=== PATIENT | female | born 1950 | race Caucasian/White ===

== ENCOUNTER 2020-06-09 06:35 | Inpatient (IN) ==
[2020-06-09] MEDS ORDERED: 0.9 % SODIUM CHLORIDE 1,000 ML IV ONE ×2 (06:48→08:14)
[2020-06-09] MEDS ORDERED: LORazepam 2 MG/ML VIAL IV ONE ×3 (07:06→08:08)
[2020-06-09 07:56] LABS: Basophils # (Auto) 0.01 K/mcL (0.00-0.20); Basophils % (Auto) 0.1 % (0.0-2.0); Eosinophils # (Auto) 0 K/mcL (0.00-0.70); Eosinophils % (Auto) 0 % (0.0-7.0); Hematocrit 38.5 % (36.0-48.0); Hemoglobin 12.9 g/dL (12.0-15.0); Lymphocytes # (Auto) 1.47 K/mcL (1.50-4.80); Lymphocytes % (Auto) 13.1 % (15.0-49.0); Mean Cell Volume 87.7 fL (80.0-100.0); Mean Corpuscular HGB Conc 33.5 g/dL (31.0-36.0); Mean Platelet Volume 10.3 fL (7.4-10.4); Monocytes # (Auto) 0.58 K/mcL (0.10-0.90); Monocytes % (Auto) 5.2 % (1.0-12.0); Neutrophils % (Auto) 81.6 % (38.0-78.0); Platelet Count 287 K/mcL (140-440); RBC 4.39 M/mcL (4.00-5.20); Red Cell Distribution Width 14.5 % (11.5-14.5); WBC 11.2 K/mcL (4.5-11.0)
[2020-06-09] MEDS ORDERED: cefTRIAXone 1 GM VIAL IV ONE ×2 (08:14→12:45)
--- NOTE | 2020-06-09 08:23 | Emergency Department Note ---
HPI General Chief complaint: Weakness Stated complaint: weakness Time Seen by Provider: 06/09/20 08:14 Source: EMS Mode of arrival: EMS Limitations: no limitations History of Present Illness HPI Narrative: Narrative: 69-year-old patient presenting to the emergency department chief complaint of altered mentation. Historical clues assessed for include recent febrile illness, history of organ failure, medication list evaluation, alcohol drug abuse, recent depression. Patient is confused at time of evaluation and history is limited. There are no exacerbating or ameliorating factors identified at this time. Time course is acute, patient noted to have fallen out of bed this morning is on Plavix. Initially on presentation patient was not responsive however during interventions and working on her without significant medications or fluids patient became verbal and made purposeful movements moving all extremities during these encounters. Related Data Home Medications Medication Instructions Recorded Confirmed topiramate 100 mg tablet 100 mg PO BID 06/01/19 02/07/20 budesonide-formoterol HFA 80 2 puff INHALATION BID PRN 06/03/19 02/07/20 mcg-4.5 mcg/actuation aerosol inhaler ipratropium 20 mcg-albuterol 100 1 puff INHALATION QID PRN g 06/03/19 02/07/20 mcg/actuation mist for inhalation metformin 1,000 mg PO BID 01/22/20 02/07/20 Previous Rx's Medication Instructions Recorded blood sugar diagnostic #100 each 11/04/19 blood-glucose meter #1 each 11/04/19 lancets #102 each 11/04/19 clopidogrel 75 mg tablet 75 mg PO QDAY #90 tab 12/27/19 fenofibrate 160 mg tablet 160 mg PO DAILY #90 tab 12/27/19 semaglutide 0.5 mg SUB-Q QWEEK #1.5 ml 02/07/20 trazodone 150 mg tablet See Rx Instructions .ROUTE 04/17/20 .COMPLEX #60 tab clonazepam 0.5 mg tablet 0.5 mg PO BID #60 tab 06/05/20 duloxetine 20 mg capsule,delayed 40 mg PO QDAY #180 cap 06/05/20 release nortriptyline 25 mg capsule 25 mg PO QHS #90 cap 06/05/20 rosuvastatin 20 mg tablet 10 mg PO QHS #90 tab 06/05/20 Allergies Allergy/AdvReac Type Severity Reaction Status Date / Time Sulfa (Sulfonamide Allergy Intermediate Hives Verified 02/07/20 07:56 Antibiotics) citalopram AdvReac Mild Nausea and Verified 02/07/20 07:56 Vomiting codeine AdvReac Mild Nausea and Verified 02/07/20 07:56 Vomiting hydrocodone AdvReac Mild Nausea and Verified 02/07/20 07:56 vomiting sertraline [From Zoloft] AdvReac Mild Nausea and Verified 02/07/20 07:56 Vomiting Review of Systems ROS ROS Narrative: Narrative: Limitations: ROS unobtainable due to patients medical condition [facility] Narrative Patient History Narrative: Narrative: Medical/Surgical/Family History All Active Problems (Updated 06/09/20 @ 08:23 by Jaime Zelaya MD) Dehydration (Acute) Acute alteration in mental status (Acute) Herpes zoster without complication (Chronic) Chronic left shoulder pain (Chronic) Arthrofibrosis of total knee arthroplasty (Chronic) Foot infection (Chronic) Depression (Chronic) Arthritis (Chronic) Anesthesia complication (Chronic) Spondylosis of lumbar region without myelopathy or radiculopathy (Chronic) Hyperlipidemia with target LDL less than 70 (Chronic) COPD (chronic obstructive pulmonary disease) (Chronic) Chronic low back pain (Chronic) Bilateral hearing loss (Chronic) Type 2 diabetes mellitus without complication, without long-term current use of insulin (Chronic) Non-rheumatic mitral regurgitation (Chronic) Abnormal chest CT (Chronic) Dermatitis of external ear (Chronic) Hyperglycemia (Chronic) Obstructive sleep apnea (Chronic) Essential hypertension (Chronic) ZACARIAS (dyspnea on exertion) (Chronic) Osteoarthritis of right knee (Chronic) ALMA (generalized anxiety disorder) (Chronic) Benzodiazepine dependence (Chronic) Eczema (Acute) Contracture, right knee (Chronic) Stroke (Chronic ~2003) Joint pain (Chronic ~2016) Insomnia (Chronic ~2009) High cholesterol (Chronic ~2007) Daytime sleepiness (Chronic ~2016) Bleeding disorder (Chronic ~2007) Anxiety (Chronic ~2003) Medical History (Updated 06/09/20 @ 08:23 by Jaime Zelaya MD) Abnormal chest CT (Chronic) Anesthesia complication (Chronic) "stopped breathing" Anxiety (Chronic ~2003) Arthritis (Chronic) Arthrofibrosis of total knee arthroplasty (Chronic) Benzodiazepine dependence (Chronic) Bilateral hearing loss (Chronic) due to measles Bleeding disorder (Chronic ~2007) Chronic left shoulder pain (Chronic) Chronic low back pain (Chronic) COPD (chronic obstructive pulmonary disease) (Chronic) Daytime sleepiness (Chronic ~2017) Depression (Chronic) Dermatitis of external ear (Chronic) ZACARIAS (dyspnea on exertion) (Chronic) Essential hypertension (Chronic) Foot infection (Chronic) ALMA (generalized anxiety disorder) (Chronic) Herpes zoster without complication (Chronic) High cholesterol (Chronic ~2007) Hyperglycemia (Chronic) Hyperlipidemia with target LDL less than 70 (Chronic) Insomnia (Chronic ~2009) Joint pain (Chronic ~2016) Non-rheumatic mitral regurgitation (Chronic) Obstructive sleep apnea (Chronic) Osteoarthritis of right knee (Chronic) Spondylosis of lumbar region without myelopathy or radiculopathy (Chronic) Stroke (Chronic ~2003) Type 2 diabetes mellitus without complication, without long-term current use of insulin (Chronic) Surgical History History of arthroscopy of knee (Chronic) History of knee replacement (Chronic ~2016) Right History of left shoulder replacement (Chronic ~2011) History of surgery on arm (Chronic) Left arm fracture Family History Father Cancer Heart attack Coronary artery disease Diabetes Mother Heart attack Cancer Diabetes Coronary artery disease Unknown No problems noted. Other COPD (chronic obstructive pulmonary disease) Heart disease Social History Smoking Status: Former smoker Alcohol Intake Frequency: does not drink Substance Use: does not use Exam Narrative Narrative: General: Reduced interaction, arousable, responsive to verbal stimuli as well as pain, moving all extremities Head: Atraumatic, normocephalic Eyes: Extraocular movements intact, sclera anicteric, no conjunctival injection Ears: Pinnae normal, no discharge Mouth: Oral mucosa moist, no acute swelling or evidence of infection Nares: No nasal discharge, patent bilaterally Neck: Trachea midline, full range of motion Chest: Symmetrical chest wall rise, breathing normally; nonlabored respirations Cardiovascular: Patient with excellent perfusion to the extremities; without tachycardia/bradycardia Skin: Patient without area of erythema, patient is without rash, no ascending lymphangitis or lymphadenopathy Extremities: Full range of motion joints, no obvious deformities Neuro: Arousable confused appearing, cranial nerves II through XII grossly intact, patient without lateralizing findings such as weakness, or abnormal reflexes Psychiatric: Patient with altered mentation, decreased interaction General Limitations: no limitations Course Vital Signs Vital signs: Vital Signs Temperature 97.0 F 06/09/20 06:36 Pulse Rate 119 H 06/09/20 06:36 Respiratory Rate 18 06/09/20 06:36 Pulse Oximetry (%) 100 06/09/20 06:36 Temperature 97.0 F 06/09/20 06:36 Pulse Rate 119 H 06/09/20 06:36 Respiratory Rate 18 06/09/20 06:36 Blood Pressure 111/79 06/09/20 07:47 Pulse Oximetry (%) 100 06/09/20 06:36 MDM MDM Narrative Medical decision making narrative: Narrative: 69-year-old patient presenting to the emergency department chief complaint of altered mental status. Patient's recent medical history is evaluated for infectious illnesses, history of organ failure, medication list, drug/alcohol history, and depression patient's mental status made them unable to provide significant clues to current symptoms differential diagnosis included but not limited to stroke, intracranial hemorrhage, electrolyte derangement, DKA/HHS, sepsis, toxicology including alcohol and overdose, status epilepticus. Evaluation the emergency department included multiple laboratories as well as CT scan, chest x-ray, blood cultures, urine culture, urine drug screen, IV fluids 2 L were ordered at time of shift change, Rocephin 1 g IV. At time of shift change patient was still in the work-up process and bDr. Lopez will assume care. Lab Data Result diagrams: 06/09/20 07:01 06/09/20 07:01 Labs: Lab Results 06/09/20 Range/Units 07:01 WBC 11.2 H (4.5-11.0) K/mcL RBC 4.39 (4.00-5.20) M/mcL Hgb 12.9 (12.0-15.0) g/dL Hct 38.5 (36.0-48.0) % MCV 87.7 (80.0-100.0) fL MCH 29.4 (26.0-34.0) pg MCHC 33.5 (31.0-36.0) g/dL RDW 14.5 (11.5-14.5) % Plt Count 287 (140-440) K/mcL MPV 10.3 (7.4-10.4) fL Neut % (Auto) 81.6 H (38.0-78.0) % Lymph % (Auto) 13.1 L (15.0-49.0) % [place] % (Auto) 5.2 (1.0-12.0) % Eos % (Auto) 0 (0.0-7.0) % Baso % (Auto) 0.1 (0.0-2.0) % Lymph # (Auto) 1.47 L (1.50-4.80) K/mcL [place] # (Auto) 0.58 (0.10-0.90) K/mcL Eos # (Auto) 0 (0.00-0.70) K/mcL Baso # (Auto) 0.01 (0.00-0.20) K/mcL Absolute Neutrophils 9.16 H (1.80-8.00) K/mcL Discharge Plan Patient/Caregiver Discharge Instructions Pt seen by [facility]/PA only: No Clinical Impression: Acute alteration in mental status Patient Disposition: Still a Patient Condition: Undetermined Follow up with: Yari Fritz PA-C [Primary Care Provider] - Prescriptions: No Action fenofibrate 160 mg tablet 160 mg tablet 160 mg PO DAILY Qty: 90 RF: 0 clopidogrel 75 mg tablet 75 mg PO QDAY Qty: 90 RF: 0 trazodone 150 mg tablet See Rx Instructions .ROUTE .COMPLEX Qty: 60 RF: 2 rosuvastatin 20 mg tablet 10 mg PO QHS Qty: 90 RF: 0 nortriptyline 25 mg capsule 25 mg PO QHS Qty: 90 RF: 0 duloxetine 20 mg capsule,delayed release(DR/EC) 40 mg PO QDAY Qty: 180 RF: 0 clonazepam 0.5 mg tablet 0.5 mg PO BID Qty: 60 RF: 2 Symbicort 80-4.5 mcg/actuation HFA aerosol inhaler 2 puff INHALATION BID PRN (Reason: Shortness Of Breath) RF: 0 Combivent Respimat 20-100 mcg/actuation mist 1 puff INHALATION QID PRN (Reason: Shortness Of Breath) RF: 0 topiramate 100 mg tablet 100 mg PO BID RF: 0 (DME) blood-glucose meter Misc See Rx Instructions .ROUTE .MEDSUPPLY Qty: 1 RF: 0 (DME) blood sugar diagnostic [Blood Glucose Test] Strip See Rx Instructions .ROUTE .MEDSUPPLY Qty: 100 RF: 3 (DME) lancets [Accu-Chek Softclix Lancets] Misc See Rx Instructions .ROUTE .MEDSUPPLY Qty: 102 RF: 3 Ozempic 0.25 mg or 0.5 mg(2 mg/1.5 mL) pen injector 0.5 mg SUB-Q QWEEK Qty: 1.5 RF: 3 metformin 500 mg tablet 1,000 mg PO BID RF: 0
[2020-06-09 08:26] LABS: ALT/SGPT 16 U/L (<40); AST/SGOT 17 U/L (<32); Albumin 3.5 gm/dL (3.2-5.2); Albumin/Globulin Ratio 1.1 (1.0-2.3); Alkaline Phosphatase 62 U/L (39-117); Bilirubin,Total 1.8 mg/dL (0.1-1.0); Blood Urea Nitrogen 33 mg/dL (8-23); Calcium 8.8 mg/dL (8.6-10.4); Carbon Dioxide 17 mmol/L (22-30); Chloride 88 mmol/L (96-108); Globulin 3.2 gm/dL (2.2-3.7); Glomerular Filtration Rate 50; Glucose 291 mg/dL (70-105)
[2020-06-09] MEDS ORDERED: POTASSIUM CHLORIDE 40 MEQ in DEXTROSE 5% IN WATER 500 ML IV ONE (08:26)
[2020-06-09 08:34] LABS: Alcohol, Blood < 10.0 mg/dL
--- NOTE | 2020-06-09 08:51 | Cat Scan Report ---
History: Fell with decreased mental status, increased weakness TECHNIQUE: The brain was imaged without contrast at 2.5 mm intervals. Radiation exposure was limited using dose reduction technology. FINDINGS: There is a moderate-sized old infarct with encephalomalacia at the right temporoparietal boundary. Measures approximately 2.4 x 3.4 cm. This was present on the prior MRI done on 12/27/09. The encephalomalacia has progressed. No acute infarct is detected and there is no hemorrhage. Patient has large bilateral subpectoral hygromas with CSF attenuation. They surrounding the frontal and parietal and temporal lobes. This measures up to 1.4 cm in width on the right side approximately 8mm in the left. These are new since 12/27/09. Bone windows show no skull fracture. 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
--- NOTE | 2020-06-09 08:53 | XRay Report ---
HISTORY: Chest pain, dyspnea and combativeness FINDINGS: The lungs are clear normally expanded. The heart size, pulmonary vasculature, mediastinum, vinny and pleura are normal. There is a left shoulder prosthesis. 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 Comparison with the prior exam from 01/22/20 shows no significant change. Old healed fractures are present posterolaterally in the left sixth seventh and eighth ribs. IMPRESSION: No acute abnormality Interpreted and Authenticated by: Abdirashid Sanchez 06/09/20
[2020-06-09 08:55] LABS: Amphetamine Screen,Urine None detected; Barbiturate Screen,Urine None detected; Benzodiazepines Screen,Urine None detected; Cannabinoid Screen,Urine None detected; Cocaine Screen,Urine None detected; Opiate Screen,Urine None detected; Oxycodone, Urine Screen None detected; Phencyclidine Screen,Urine None detected
--- NOTE | 2020-06-09 09:21 | Emergency Department Note ---
HPI General Chief complaint: Weakness Stated complaint: weakness Time Seen by Provider: 06/09/20 08:14 Source: EMS Mode of arrival: EMS Limitations: no limitations History of Present Illness HPI Narrative: Narrative: See history and physical dictated by Dr. Zelaya. I am assuming care of patient and the post shift change. CT scan comes back with abnormalities. See below under MDM. Related Data Home Medications Medication Instructions Recorded Confirmed topiramate 100 mg tablet 100 mg PO BID 06/01/19 02/07/20 budesonide-formoterol HFA 80 2 puff INHALATION BID PRN 06/03/19 02/07/20 mcg-4.5 mcg/actuation aerosol inhaler ipratropium 20 mcg-albuterol 100 1 puff INHALATION QID PRN g 06/03/19 02/07/20 mcg/actuation mist for inhalation metformin 1,000 mg PO BID 01/22/20 02/07/20 Previous Rx's Medication Instructions Recorded blood sugar diagnostic #100 each 11/04/19 blood-glucose meter #1 each 11/04/19 lancets #102 each 11/04/19 clopidogrel 75 mg tablet 75 mg PO QDAY #90 tab 12/27/19 fenofibrate 160 mg tablet 160 mg PO DAILY #90 tab 12/27/19 semaglutide 0.5 mg SUB-Q QWEEK #1.5 ml 02/07/20 trazodone 150 mg tablet See Rx Instructions .ROUTE 04/17/20 .COMPLEX #60 tab clonazepam 0.5 mg tablet 0.5 mg PO BID #60 tab 06/05/20 duloxetine 20 mg capsule,delayed 40 mg PO QDAY #180 cap 06/05/20 release nortriptyline 25 mg capsule 25 mg PO QHS #90 cap 06/05/20 rosuvastatin 20 mg tablet 10 mg PO QHS #90 tab 06/05/20 Allergies Allergy/AdvReac Type Severity Reaction Status Date / Time Sulfa (Sulfonamide Allergy Intermediate Hives Verified 02/07/20 07:56 Antibiotics) citalopram AdvReac Mild Nausea and Verified 02/07/20 07:56 Vomiting codeine AdvReac Mild Nausea and Verified 02/07/20 07:56 Vomiting hydrocodone AdvReac Mild Nausea and Verified 02/07/20 07:56 vomiting sertraline [From Zoloft] AdvReac Mild Nausea and Verified 02/07/20 07:56 Vomiting Review of Systems ROS ROS Narrative: Narrative: PFSH Narrative Patient History Narrative: Narrative: Medical/Surgical/Family History All Active Problems (Updated 06/09/20 @ 11:26 by Karthik Lopez DO) Dehydration (Acute) Accidental fall from bed (Acute) Elevated lactic acid level (Acute) Hypokalemia (Acute) Subdural hygroma (Acute) Increased anion gap metabolic acidosis (Acute) Dehydration (Acute) Acute alteration in mental status (Acute) Herpes zoster without complication (Chronic) Chronic left shoulder pain (Chronic) Arthrofibrosis of total knee arthroplasty (Chronic) Foot infection (Chronic) Depression (Chronic) Arthritis (Chronic) Anesthesia complication (Chronic) Spondylosis of lumbar region without myelopathy or radiculopathy (Chronic) Hyperlipidemia with target LDL less than 70 (Chronic) COPD (chronic obstructive pulmonary disease) (Chronic) Chronic low back pain (Chronic) Bilateral hearing loss (Chronic) Type 2 diabetes mellitus without complication, without long-term current use of insulin (Chronic) Non-rheumatic mitral regurgitation (Chronic) Abnormal chest CT (Chronic) Dermatitis of external ear (Chronic) Hyperglycemia (Chronic) Obstructive sleep apnea (Chronic) Essential hypertension (Chronic) ZACARIAS (dyspnea on exertion) (Chronic) Osteoarthritis of right knee (Chronic) ALMA (generalized anxiety disorder) (Chronic) Benzodiazepine dependence (Chronic) Eczema (Acute) Contracture, right knee (Chronic) Stroke (Chronic ~2003) Joint pain (Chronic ~2017) Insomnia (Chronic ~2009) High cholesterol (Chronic ~2007) Daytime sleepiness (Chronic ~2016) Bleeding disorder (Chronic ~2007) Anxiety (Chronic ~2003) Medical History (Updated 06/09/20 @ 11:26 by Karthik Lopez DO) Abnormal chest CT (Chronic) Anesthesia complication (Chronic) "stopped breathing" Anxiety (Chronic ~2003) Arthritis (Chronic) Arthrofibrosis of total knee arthroplasty (Chronic) Benzodiazepine dependence (Chronic) Bilateral hearing loss (Chronic) due to measles Bleeding disorder (Chronic ~2007) Chronic left shoulder pain (Chronic) Chronic low back pain (Chronic) COPD (chronic obstructive pulmonary disease) (Chronic) Daytime sleepiness (Chronic ~2017) Depression (Chronic) Dermatitis of external ear (Chronic) ZACARIAS (dyspnea on exertion) (Chronic) Essential hypertension (Chronic) Foot infection (Chronic) ALMA (generalized anxiety disorder) (Chronic) Herpes zoster without complication (Chronic) High cholesterol (Chronic ~2007) Hyperglycemia (Chronic) Hyperlipidemia with target LDL less than 70 (Chronic) Insomnia (Chronic ~2009) Joint pain (Chronic ~2016) Non-rheumatic mitral regurgitation (Chronic) Obstructive sleep apnea (Chronic) Osteoarthritis of right knee (Chronic) Spondylosis of lumbar region without myelopathy or radiculopathy (Chronic) Stroke (Chronic ~2003) Type 2 diabetes mellitus without complication, without long-term current use of insulin (Chronic) Surgical History (Updated 06/09/20 @ 09:11 by Karthik Lopez DO) History of arthroscopy of knee (Chronic) History of knee replacement (Chronic ~2016) Right History of left shoulder replacement (Chronic ~2011) History of surgery on arm (Chronic) Left arm fracture History of tonsillectomy (Resolved) Family History Diabetes Father Mother Coronary artery disease Father Mother Heart disease Heart attack Father Mother COPD (chronic obstructive pulmonary disease) Cancer Father Mother Social History Smoking Status: Former smoker Alcohol Intake Frequency: does not drink Substance Use: does not use Exam Narrative Narrative: Narrative: Significantly confused, not able to obey commands. Utterances include nonsense and sometimes sentences that are not appropriate for the circumstances. Speaking of something blue or blue closer people and blue. Not sure if she was prompted by a dark blue scrub or a blue pen but does not make sense for the contacts. Nursing reports agitation, confusion, uncooperativeness. Has pulled out IVs x2. Has her third IV wrapped tightly with Coban on the right hand/wrist. 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 Less urgent but does recommend speaking with a neurosurgeon. 10:01 AM - spoke with Dr. Ravi, neurosurgeon, who indicates that the hygrom as are definite there but could be more mainly atrophy of the brain that is moderately severe. A possible shunt or shunts could be considered but that this could be done outpatient and is not an acute need. Currently there is no mass- effect, shift, hemorrhage. 10:04 AM - spoke with patient's , Surjit who indicates no official diagnosis of dementia but 7 to 8 months ago Surjit begin to notice confusion, memory changes, struggling for words, speaking and then stopping and not being able to finish. There were no abnormal behaviors in finding things and wrong places but did need help getting close on. Some of this he thinks is physical but some could be mental as well. She often is more confused later in the day and sharper in the morning. No official diagnosis of dementia. 10:19 AM - nursing staff confirms that her urine was dark, tea colored, cloudy with markedly positive nitrates and leukocyte esterase. Specific gravity is 1.025. Lactic acid was significantly elevated, there is some degree of acidosis with mildly suppressed bicarb at 17 (commonly 18-20) but her anion gap is markedly elevated at 28.0. BUN is 33, creatinine 1.1. This is quite significantly different for her BUN. Chest x-ray was negative. Patient does have a history of being on clonazepam, nortriptyline and trazodone in the past. It is uncertain what her dosing has been of this. Urine drug screen of abuse was negative. Alcohol did however show 0.010. Grandma indicates that she does not have access to any alcohol and does not drink. He admits that he occasionally has beer available but believes that she does not have any access to it. 11:15 AM - I spoke with hospitalist, Dr. Mackey, who is willing to take over this patient and accept for inpatient care to further work-up. I added a s alicylate level, an actual urinalysis, and an order for 2 mg of Haldol due to her significant severe agitation. Lab Data Result diagrams: 06/09/20 07:01 06/09/20 07:01 Labs: Lab Results 06/09/20 06/09/20 06/09/20 Range/Units 07:01 07:01 07:01 WBC 11.2 H (4.5-11.0) K/mcL RBC 4.39 (4.00-5.20) M/mcL Hgb 12.9 (12.0-15.0) g/dL Hct 38.5 (36.0-48.0) % MCV 87.7 (80.0-100.0) fL MCH 29.4 (26.0-34.0) pg MCHC 33.5 (31.0-36.0) g/dL RDW 14.5 (11.5-14.5) % Plt Count 287 (140-440) K/mcL MPV 10.3 (7.4-10.4) fL Neut % (Auto) 81.6 H (38.0-78.0) % Lymph % (Auto) 13.1 L (15.0-49.0) % [place] % (Auto) 5.2 (1.0-12.0) % Eos % (Auto) 0 (0.0-7.0) % Baso % (Auto) 0.1 (0.0-2.0) % Lymph # (Auto) 1.47 L (1.50-4.80) K/mcL [place] # (Auto) 0.58 (0.10-0.90) K/mcL Eos # (Auto) 0 (0.00-0.70) K/mcL Baso # (Auto) 0.01 (0.00-0.20) K/mcL Absolute Neutrophils 9.16 H (1.80-8.00) K/mcL Sodium 133 (133-145) mmol/L Potassium 2.4 L* (3.3-5.1) mmol/L Chloride 88 L (96-108) mmol/L Carbon Dioxide 17 L (22-30) mmol/L Anion Gap 28.0 H (8.0-16.0) BUN 33 H (8-23) mg/dL Creatinine 1.1 (0.6-1.1) mg/dL GFR Calculation 50 Glucose 291 H (70-105) mg/dL Calcium 8.8 (8.6-10.4) mg/dL Total Bilirubin 1.8 H (0.1-1.0) mg/dL AST 17 (<32) U/L ALT 16 (<40) U/L Alkaline Phosphatase 62 (39-117) U/L Troponin T (<0.03) ng/mL Total Protein 6.7 (5.9-8.4) gm/dL Albumin 3.5 (3.2-5.2) gm/dL Globulin 3.2 (2.2-3.7) gm/dL Albumin/Globulin Ratio 1.1 (1.0-2.3) Urine Opiates Screen Ur Oxycodone Screen Urine Methadone Screen Ur Barbiturates Screen Ur Phencyclidine Scrn Ur Amphetamines Screen U Benzodiazepines Scrn Urine Cocaine Screen U Marijuana (THC) Screen Ethyl Alcohol 0.010 H (<0.010) gm/dL 06/09/20 06/09/20 Range/Units 07:01 08:00 WBC (4.5-11.0) K/mcL RBC (4.00-5.20) M/mcL Hgb (12.0-15.0) g/dL Hct (36.0-48.0) % MCV (80.0-100.0) fL MCH (26.0-34.0) pg MCHC (31.0-36.0) g/dL RDW (11.5-14.5) % Plt Count (140-440) K/mcL MPV (7.4-10.4) fL Neut % (Auto) (38.0-78.0) % Lymph % (Auto) (15.0-49.0) % [place] % (Auto) (1.0-12.0) % Eos % (Auto) (0.0-7.0) % Baso % (Auto) (0.0-2.0) % Lymph # (Auto) (1.50-4.80) K/mcL [place] # (Auto) (0.10-0.90) K/mcL Eos # (Auto) (0.00-0.70) K/mcL Baso # (Auto) (0.00-0.20) K/mcL Absolute Neutrophils (1.80-8.00) K/mcL Sodium (133-145) mmol/L Potassium (3.3-5.1) mmol/L Chloride (96-108) mmol/L Carbon Dioxide (22-30) mmol/L Anion Gap (8.0-16.0) BUN (8-23) mg/dL Creatinine (0.6-1.1) mg/dL GFR Calculation Glucose (70-105) mg/dL Calcium (8.6-10.4) mg/dL Total Bilirubin (0.1-1.0) mg/dL AST (<32) U/L ALT (<40) U/L Alkaline Phosphatase (39-117) U/L Troponin T 0.02 (<0.03) ng/mL Total Protein (5.9-8.4) gm/dL Albumin (3.2-5.2) gm/dL Globulin (2.2-3.7) gm/dL Albumin/Globulin Ratio (1.0-2.3) Urine Opiates Screen None detected Ur Oxycodone Screen None detected Urine Methadone Screen None detected Ur Barbiturates Screen None detected Ur Phencyclidine Scrn None detected Ur Amphetamines Screen None detected U Benzodiazepines Scrn None detected Urine Cocaine Screen None detected U Marijuana (THC) Screen None detected Ethyl Alcohol (<0.010) gm/dL Discharge Plan Patient/Caregiver Discharge Instructions Pt seen by HUMAN SERVICES CASE MANAGER/PA only: No Clinical Impression: Acute alteration in mental status, Dehydration, Accidental fall from bed, Elevated lactic acid level, Hypokalemia, Subdural hygroma, Increased anion gap metabolic acidosis Patient Disposition: Xfer As Inpt ([facility]) Condition: Undetermined Follow up with: Yari Fritz PA-C [Primary Care Provider] - Prescriptions: No Action fenofibrate 160 mg tablet 160 mg tablet 160 mg PO DAILY Qty: 90 RF: 0 clopidogrel 75 mg tablet 75 mg PO QDAY Qty: 90 RF: 0 trazodone 150 mg tablet See Rx Instructions .ROUTE .COMPLEX Qty: 60 RF: 2 rosuvastatin 20 mg tablet 10 mg PO QHS Qty: 90 RF: 0 nortriptyline 25 mg capsule 25 mg PO QHS Qty: 90 RF: 0 duloxetine 20 mg capsule,delayed release(DR/EC) 40 mg PO QDAY Qty: 180 RF: 0 clonazepam 0.5 mg tablet 0.5 mg PO BID Qty: 60 RF: 2 Symbicort 80-4.5 mcg/actuation HFA aerosol inhaler 2 puff INHALATION BID PRN (Reason: Shortness Of Breath) RF: 0 Combivent Respimat 20-100 mcg/actuation mist 1 puff INHALATION QID PRN (Reason: Shortness Of Breath) RF: 0 topiramate 100 mg tablet 100 mg PO BID RF: 0 (DME) blood-glucose meter Misc See Rx Instructions .ROUTE .MEDSUPPLY Qty: 1 RF: 0 (DME) blood sugar diagnostic [Blood Glucose Test] Strip See Rx Instructions .ROUTE .MEDSUPPLY Qty: 100 RF: 3 (DME) lancets [Accu-Chek Softclix Lancets] Misc See Rx Instructions .ROUTE .MEDSUPPLY Qty: 102 RF: 3 Ozempic 0.25 mg or 0.5 mg(2 mg/1.5 mL) pen injector 0.5 mg SUB-Q QWEEK Qty: 1.5 RF: 3 metformin 500 mg tablet 1,000 mg PO BID RF: 0
[2020-06-09] MEDS ORDERED: HALOPERIDOL LACTATE 5 MG/ML VIAL IV ONE (11:15)
[2020-06-09] MEDS ORDERED: THIAMINE 100 MG in 0.9 % SODIUM CHLORIDE 50 ML IV ONE (11:15)
--- NOTE | 2020-06-09 11:31 | Internal Med History&Physical ---
HPI History of Present Illness Patient information: Note initiated : 06/09/20 at 11:27 am Service Date, if different from initiated Date: [] Patient: Shayna Brice 69 y/o F admitted on for weakness. Chief Complaint: Obtunded state/weakness History of present illness: Ms. Brice is a 69 year old F with a history of DM type II/anxiety disorder/CAD/HLD who presented to the ER with worsening weakness, confusion and multiple falls over the last few days. Symptoms progressed to the point in the last 24 hours patient has not made any sense concerning family was brought into the ER. Initial work-up was consistent with severe volume depletion, h ypotension, extensive biochemical abnormality with large anion gap acidosis/obtunded state/psychosis/hypokalemia 2.4/systolics low 90s. Patient received crystalloids boluses. Head CT suggestive of subdural hygroma for which neurosurgery was consulted by ER. No emergent intervention was indicated. Negative urine drug screen/alcohol level. Salicylates pending. Lactic acid over 9. COVID-19 test pending. White count 11.2 bilirubin 1.8. Patient remained altered and encephalopathic occasionally moving her arms but not to able to provide any history. Most of the history was obtained from . In light of above hospitalist service was consulted for admission At the time of my evaluation patient is gravely encephalopathic. GCS 3, unable to provide answers to any question or review of systems. She is tachycardic/Dunn is draining concentrated urine. Multiple bruises on the body secondary to falls. Restless and intermittently agitated pulling on lines and tubes. Review of systems Unable to be performed due to patient's mental status change PFSH PFS All Active Problems (Updated 06/09/20 @ 11:26 by Karthik Lopez DO) Dehydration (Acute) Accidental fall from bed (Acute) Elevated lactic acid level (Acute) Hypokalemia (Acute) Subdural hygroma (Acute) Increased anion gap metabolic acidosis (Acute) Dehydration (Acute) Acute alteration in mental status (Acute) Herpes zoster without complication (Chronic) Chronic left shoulder pain (Chronic) Arthrofibrosis of total knee arthroplasty (Chronic) Foot infection (Chronic) Depression (Chronic) Arthritis (Chronic) Anesthesia complication (Chronic) Spondylosis of lumbar region without myelopathy or radiculopathy (Chronic) Hyperlipidemia with target LDL less than 70 (Chronic) COPD (chronic obstructive pulmonary disease) (Chronic) Chronic low back pain (Chronic) Bilateral hearing loss (Chronic) Type 2 diabetes mellitus without complication, without long-term current use of insulin (Chronic) Non-rheumatic mitral regurgitation (Chronic) Abnormal chest CT (Chronic) Dermatitis of external ear (Chronic) Hyperglycemia (Chronic) Obstructive sleep apnea (Chronic) Essential hypertension (Chronic) ZACARIAS (dyspnea on exertion) (Chronic) Osteoarthritis of right knee (Chronic) ALMA (generalized anxiety disorder) (Chronic) Benzodiazepine dependence (Chronic) Eczema (Acute) Contracture, right knee (Chronic) Stroke (Chronic ~2003) Joint pain (Chronic ~2016) Insomnia (Chronic ~2009) High cholesterol (Chronic ~2007) Daytime sleepiness (Chronic ~2016) Bleeding disorder (Chronic ~2007) Anxiety (Chronic ~2003) Medical History (Updated 06/09/20 @ 11:26 by Karthik Lopez DO) Abnormal chest CT (Chronic) Anesthesia complication (Chronic) "stopped breathing" Anxiety (Chronic ~2003) Arthritis (Chronic) Arthrofibrosis of total knee arthroplasty (Chronic) Benzodiazepine dependence (Chronic) Bilateral hearing loss (Chronic) due to measles Bleeding disorder (Chronic ~2007) Chronic left shoulder pain (Chronic) Chronic low back pain (Chronic) COPD (chronic obstructive pulmonary disease) (Chronic) Daytime sleepiness (Chronic ~2016) Depression (Chronic) Dermatitis of external ear (Chronic) ZACARIAS (dyspnea on exertion) (Chronic) Essential hypertension (Chronic) Foot infection (Chronic) ALMA (generalized anxiety disorder) (Chronic) Herpes zoster without complication (Chronic) High cholesterol (Chronic ~2007) Hyperglycemia (Chronic) Hyperlipidemia with target LDL less than 70 (Chronic) Insomnia (Chronic ~2009) Joint pain (Chronic ~2016) Non-rheumatic mitral regurgitation (Chronic) Obstructive sleep apnea (Chronic) Osteoarthritis of right knee (Chronic) Spondylosis of lumbar region without myelopathy or radiculopathy (Chronic) Stroke (Chronic ~2003) Type 2 diabetes mellitus without complication, without long-term current use of insulin (Chronic) Surgical History (Updated 06/09/20 @ 09:11 by Karthik Lopez DO) History of arthroscopy of knee (Chronic) History of knee replacement (Chronic ~2016) Right History of left shoulder replacement (Chronic ~2011) History of surgery on arm (Chronic) Left arm fracture History of tonsillectomy (Resolved) Family History Father Cancer Heart attack Coronary artery disease Diabetes Mother Heart attack Cancer Diabetes Coronary artery disease Unknown No problems noted. Other COPD (chronic obstructive pulmonary disease) Heart disease Social History (Updated 11/04/19 @ 12:33 by Yari Fritz PA-C) marital status: smoking status: Former smoker alcohol intake frequency: does not drink substance use type: does not use MEDS/ALLERGIES Home Medications and Allergies Home Medications Medication Instructions Recorded Confirmed Type topiramate 100 mg tablet 100 mg PO BID 06/01/19 06/09/20 History budesonide-formoterol HFA 80 2 puff INHALATION BID PRN 06/03/19 06/09/20 History mcg-4.5 mcg/actuation aerosol inhaler ipratropium 20 mcg-albuterol 100 1 puff INHALATION QID PRN g 06/03/19 06/09/20 History mcg/actuation mist for inhalation blood sugar diagnostic #100 each 11/04/19 06/09/20 Rx blood-glucose meter #1 each 11/04/19 06/09/20 Rx lancets #102 each 11/04/19 06/09/20 Rx clopidogrel 75 mg tablet 75 mg PO QDAY #90 tab 12/27/19 06/09/20 Rx fenofibrate 160 mg tablet 160 mg PO DAILY #90 tab 12/27/19 06/09/20 Rx metformin 1,000 mg PO BID 01/22/20 06/09/20 History semaglutide 0.5 mg SUB-Q QWEEK #1.5 ml 02/07/20 06/09/20 Rx clonazepam 0.5 mg tablet 0.5 mg PO BID #60 tab 06/05/20 06/09/20 Rx duloxetine 20 mg capsule,delayed 40 mg PO QDAY #180 cap 06/05/20 06/09/20 Rx release nortriptyline 25 mg capsule 25 mg PO QHS #90 cap 06/05/20 06/09/20 Rx rosuvastatin 20 mg tablet 10 mg PO QHS #90 tab 06/05/20 06/09/20 Rx trazodone 300 mg PO HS 06/09/20 06/09/20 History Allergies Allergy/AdvReac Type Severity Reaction Status Date / Time Sulfa (Sulfonamide Allergy Intermediate Hives Verified 02/07/20 07:56 Antibiotics) citalopram AdvReac Mild Nausea and Verified 02/07/20 07:56 Vomiting codeine AdvReac Mild Nausea and Verified 02/07/20 07:56 Vomiting hydrocodone AdvReac Mild Nausea and Verified 02/07/20 07:56 vomiting sertraline [From Zoloft] AdvReac Mild Nausea and Verified 02/07/20 07:56 Vomiting EXAM Constitutional Vitals: Temp Pulse Resp BP Pulse Ox 97.0 F 119 H 18 162/133 100 06/09/20 06:36 06/09/20 06:36 06/09/20 06:36 06/09/20 09:34 06/09/20 06:36 Anxious, agitated, fidgety and disoriented Head normocephalic Oral cavity dry with crusted blood around teeth, poor lower dentition/carious tooth No ear nose bloody discharge Eye movement symmetrical Neck supple no lymphadenopathy S1-S2 tachycardia Nonlabored breathing Nondistended nontender abdomen, anterior abdominal bruising right lower flank Lower extremity no cyanosis clubbing or joint swelling Skin no suspicious lesion Psych anxious Neuro could not be performed DATA Data Completed and Pending Labs: Labs from last 24 hours 06/09/20 06/09/20 06/09/20 08:00 07:01 07:01 WBC RBC Hgb Hct MCV MCH MCHC RDW Plt Count MPV Neut % (Auto) Lymph % (Auto) Adams % (Auto) Eos % (Auto) Baso % (Auto) Lymph # (Auto) Adams # (Auto) Eos # (Auto) Baso # (Auto) Absolute Neutrophils Sodium Potassium Chloride Carbon Dioxide Anion Gap BUN Creatinine GFR Calculation Glucose Calcium Total Bilirubin AST ALT Alkaline Phosphatase Troponin T 0.02 Total Protein Albumin Globulin Albumin/Globulin Ratio Urine Opiates Screen None detected Ur Opiates Confirm Pending Ur Oxycodone Screen None detected Urine Methadone Screen None detected Ur Methadone Confirm Pending Ur Barbiturates Screen None detected Ur Barbiturate Confirm Pending Ur Phencyclidine Scrn None detected Urine PCP Confirm Pending Ur Amphetamines Screen None detected U Amphetamines Confirm Pending U Benzodiazepines Scrn None detected U Benzodiazepine Confm Pending Urine Cocaine Screen None detected Urine Cocaine Confirm Pending U Cannabinoids Confirm Pending U Marijuana (THC) Screen None detected Ethyl Alcohol 0.010 H 06/09/20 06/09/20 07:01 07:01 WBC 11.2 H RBC 4.39 Hgb 12.9 Hct 38.5 MCV 87.7 MCH 29.4 MCHC 33.5 RDW 14.5 Plt Count 287 MPV 10.3 Neut % (Auto) 81.6 H Lymph % (Auto) 13.1 L Adams % (Auto) 5.2 Eos % (Auto) 0 Baso % (Auto) 0.1 Lymph # (Auto) 1.47 L Adams # (Auto) 0.58 Eos # (Auto) 0 Baso # (Auto) 0.01 Absolute Neutrophils 9.16 H Sodium 133 Potassium 2.4 L* Chloride 88 L Carbon Dioxide 17 L Anion Gap 28.0 H BUN 33 H Creatinine 1.1 GFR Calculation 50 Glucose 291 H Calcium 8.8 Total Bilirubin 1.8 H AST 17 ALT 16 Alkaline Phosphatase 62 Troponin T Total Protein 6.7 Albumin 3.5 Globulin 3.2 Albumin/Globulin Ratio 1.1 Urine Opiates Screen Ur Opiates Confirm Ur Oxycodone Screen Urine Methadone Screen Ur Methadone Confirm Ur Barbiturates Screen Ur Barbiturate Confirm Ur Phencyclidine Scrn Urine PCP Confirm Ur Amphetamines Screen U Amphetamines Confirm U Benzodiazepines Scrn U Benzodiazepine Confm Urine Cocaine Screen Urine Cocaine Confirm U Cannabinoids Confirm U Marijuana (THC) Screen Ethyl Alcohol A/P Narrative A/P Narrative: * Acute change in mental status-likely infectious/toxic metabolic likely secondary to AGMA, rule out Covid 19. Lumbar puncture if indicated. Empiric antibiotics including vancomycin/Rocephin. * Circulatory shock- uncler itiology, Likely sepsis. Evidence of multiple end organ dysfunction. Crystalloids and pressors * Complicated UTI-broad antibiotic coverage/UA/cultures * Sepsis secondary to above with endorgan dysfunction including encephalopathy/elevated bilirubin/GIOVANNA. Continue management guidelines. Pancultures/broad antibiotic/crystalloids/lactic acid trending. Severe lactic acidosis at 7.6 * Anion gap metabolic acidosis, check ABG. Likely lactic acidosis however rule out DKA in the setting of diabetes. Aggressive crystalloid/supportive management. Salicylate levels. Alcohol negative. No evidence of ethylene glycol ingestion. * Critical hypokalemia-aggressive replacement * Volume depletion with GIOVANNA-continue crystalloid challenge * Elevated bilirubin-CT abdomen to rule out cholangitis/obstructive biliary process * History of DM type II-basal prandial insulin/CC diet * History of COPD continue bronchodilators * Anxiety disorder continue clonazepam/duloxetine/trazodone * Neuropathy continue nortriptyline * Hyperlipemia continue statin * Full code * Prophylaxis Lovenox Plan * Inpatient ICU admission in light of acute encephalopathy/severe electrolyte abnormality including critical hypokalemia/anion gap metabolic acidosis requiring further investigation. Childress 2 score 20 signify high risk mortality * Aggressive crystalloids/broad antibiotic coverage * VAsopressors to keep MAP at goal * Blood gas * CT abdomen rule out intra-abdominal process * Lactic acid trending * Monitor renal function Critical care time spent in excess of 55 minutes in addition to time spent on H&P Time Spent With Patient Time: Total time spent is greater than 50% in coordination of care (as documented) at patient's floor/unit and/or counseling patient:
[2020-06-09] MEDS ORDERED: METOPROLOL TARTRATE 5 MG/5 ML VIAL IV PRN (12:27)
[2020-06-09] MEDS ORDERED: guaiFENesin/CODEINE 10 ML UDC PO PRN (12:27)
[2020-06-09] MEDS ORDERED: DEXTROSE 31 GM ORAL.SUSP PO PRN (12:27)
[2020-06-09] MEDS ORDERED: BISACODYL 10 MG SUPP.RECT PR PRN (12:27)
[2020-06-09] MEDS ORDERED: POTASSIUM CHLORIDE 40 MEQ in DEXTROSE 5% IN WATER 500 ML IV PRN (12:27)
[2020-06-09] MEDS ORDERED: ONDANSETRON 4 MG/2 ML VIAL IV PRN (12:27)
[2020-06-09] MEDS ORDERED: DEXTROSE 50% 50 ML VIAL IV PRN (12:27)
[2020-06-09] MEDS ORDERED: POLYETHYLENE GLYCOL 3350 17 GM PACKET PO PRN (12:27)
[2020-06-09] MEDS ORDERED: ONDANSETRON 4 MG ODT TABLET SL PRN (12:27)
[2020-06-09] MEDS ORDERED: MELATONIN 3 MG TABLET PO PRN (12:27)
[2020-06-09] MEDS ORDERED: VANCOMYCIN PER PHARMACY IV SCH (12:27)
[2020-06-09] MEDS ORDERED: cefTRIAXone 2 GM in DEXTROSE 5% IN WATER 50 ML IV SCH (12:27)
[2020-06-09] MEDS ORDERED: MAGNESIUM SULFATE 2 GM/50 ML BAG IV PRN (12:27)
[2020-06-09] MEDS ORDERED: hydrALAZINE 20 MG/ML VIAL IV PRN (12:27)
[2020-06-09] MEDS ORDERED: CALCIUM CHLORIDE 1,000 MG/10 ML SYRINGE IV PRN (12:27)
[2020-06-09] MEDS ORDERED: POTASSIUM CHLORIDE 20 MEQ PACKET PO PRN (12:27)
[2020-06-09] MEDS ORDERED: LACTATED RINGERS 1,000 ML IV SCH (12:27)
[2020-06-09] MEDS: VANCOMYCIN 1,000 MG in 0.9 % SODIUM CHLORIDE 250 ML IV SCH (13:55)
[2020-06-09] MEDS: 0.9 % SODIUM CHLORIDE 1,000 ML IV SCH ×2 (14:00→20:00)
[2020-06-09] MEDS: 0.9 % SODIUM CHLORIDE 10 ML SYRINGE IV SCH ×2 (14:03→21:55)
[2020-06-09] MEDS: INSULIN LISPRO 1 UNIT/0.01 ML UNIT SQ SCH ×3 (14:06→20:41)
[2020-06-09 15:55] LABS: Appearance,Urine CLEAR (Clear); Bacteria,Urine FEW /hpf (0); Color,Urine AMBER; Culture Indicated,Urine yes; Glucose,Urine (UA) 50 mg/dL (Negative); Ketones,Urine 20 mg/dL (Negative); Leukocyte Esterase,Urine 75 /ug (Negative); Mucus,Urine MANY /hpf; Nitrate,Urine POS (Negative); Protein,Urine 100 mg/dL (Negative); Specific Gravity,Urine 1.027 (1.000-1.035); Urine Hyaline Cast 9 /lph (0-2); Urine RBC 27 /hpf (0-1); Urine Squamous Epithelial Cell 1 /hpf (0-4); Urine WBC 41 /hpf (0-4)
[2020-06-09] MEDS ORDERED: 0.9 % SODIUM CHLORIDE 500 ML IV ONE (18:44)
[2020-06-09] MEDS ORDERED: NOREPINEPHRINE BITARTRATE 8 MG in 0.9 % SODIUM CHLORIDE 242 ML IV PRN (18:45)
[2020-06-09] MEDS ORDERED: IPRATROPIUM/ALBUTEROL 3 ML AMPUL.NEB NEB PRN (19:20)
[2020-06-09] MEDS: ACETAMINOPHEN 650 MG/65 ML BOTTLE IV PRN (20:45)
[2020-06-09] MEDS ORDERED: traZODone HCL 150 MG TABLET PO SCH (21:00)
[2020-06-09] MEDS: CYANOCOBALAMIN (VITAMIN B-12) 500 MCG TABLET PO SCH (21:30)
[2020-06-09] MEDS: TOPIRAMATE 100 MG TABLET PO SCH (21:30)
[2020-06-09] MEDS: DOCUSATE SODIUM 100 MG CAPSULE PO SCH (21:30)
[2020-06-09] MEDS: NORTRIPTYLINE 25 MG CAPSULE PO SCH (21:30)
[2020-06-09] MEDS: ATORVASTATIN 20 MG TABLET PO SCH (21:30)
[2020-06-09] MEDS: SENNOSIDES/DOCUSATE SODIUM 1 TAB TABLET PO SCH (21:30)
[2020-06-09] MEDS: clonazePAM 0.5 MG TABLET PO SCH (21:30)
[2020-06-10] MEDS: LORazepam 2 MG/ML VIAL IV PRN ×5 (02:15→22:01)
[2020-06-10] MEDS: 0.9 % SODIUM CHLORIDE 10 ML SYRINGE IV SCH ×5 (02:15→22:00)
[2020-06-10] MEDS: ACETAMINOPHEN 650 MG/65 ML BOTTLE IV PRN ×2 (02:58→18:57)
[2020-06-10] MEDS: INSULIN LISPRO 1 UNIT/0.01 ML UNIT SQ SCH ×4 (07:15→20:22)
[2020-06-10] MEDS: 0.9 % SODIUM CHLORIDE 250 ML IV SCH ×2 (07:16→07:17)
[2020-06-10 07:19] LABS: Basophils # (Auto) 0.01 K/mcL (0.00-0.20); Basophils % (Auto) 0.1 % (0.0-2.0); Eosinophils # (Auto) 0 K/mcL (0.00-0.70); Eosinophils % (Auto) 0 % (0.0-7.0); Hematocrit 33.1 % (36.0-48.0); Hemoglobin 10.2 g/dL (12.0-15.0); Lymphocytes # (Auto) 1.62 K/mcL (1.50-4.80); Mean Cell Volume 96.5 fL (80.0-100.0); Mean Corpuscular HGB Conc 30.8 g/dL (31.0-36.0); Mean Platelet Volume 9.8 fL (7.4-10.4); Monocytes # (Auto) 0.44 K/mcL (0.10-0.90); Monocytes % (Auto) 3.5 % (1.0-12.0); Neutrophils % (Auto) 83.4 % (38.0-78.0); Platelet Count 169 K/mcL (140-440); RBC 3.43 M/mcL (4.00-5.20); Red Cell Distribution Width 15.1 % (11.5-14.5); WBC 12.4 K/mcL (4.5-11.0)
[2020-06-10] MEDS: clonazePAM 0.5 MG TABLET PO SCH ×2 (08:17→21:27)
[2020-06-10] MEDS: MULTIVIT,THER IRON,CA,FA & MIN 1 TABLET PO SCH (08:17)
[2020-06-10] MEDS: ENOXAPARIN 40 MG/0.4 ML SYRINGE SQ SCH (08:17)
[2020-06-10] MEDS: TOPIRAMATE 100 MG TABLET PO SCH ×2 (08:17→20:44)
[2020-06-10] MEDS: CLOPIDOGREL 75 MG TABLET PO SCH (08:17)
[2020-06-10] MEDS: CYANOCOBALAMIN (VITAMIN B-12) 500 MCG TABLET PO SCH ×2 (08:28→21:27)
[2020-06-10] MEDS: DULoxetine 20 MG CAPSULE PO SCH (08:28)
[2020-06-10] MEDS: THIAMINE 100 MG TABLET PO SCH (08:28)
[2020-06-10] MEDS: DOCUSATE SODIUM 100 MG CAPSULE PO SCH ×2 (08:28→21:27)
[2020-06-10 08:29] LABS: Ferritin 955.9 ng/mL (30.0-400.0)
[2020-06-10] MEDS: VANCOMYCIN 1,000 MG in 0.9 % SODIUM CHLORIDE 250 ML IV SCH (08:58)
[2020-06-10] MEDS ORDERED: cefTRIAXone 2 GM in DEXTROSE 5% IN WATER 50 ML IV SCH (09:00)
[2020-06-10] MEDS: 0.9 % SODIUM CHLORIDE 1,000 ML IV SCH ×4 (09:04→21:27)
[2020-06-10 09:09] LABS: ALT/SGPT 17 U/L (<40); AST/SGOT 21 U/L (<32); Albumin 3.1 gm/dL (3.2-5.2); Albumin/Globulin Ratio 1.3 (1.0-2.3); Alkaline Phosphatase 54 U/L (39-117); Bilirubin,Direct 0.5 mg/dL (<0.3); Bilirubin,Total 1.1 mg/dL (0.1-1.0); Blood Urea Nitrogen 17 mg/dL (8-23); Calcium 7.5 mg/dL (8.6-10.4); Carbon Dioxide 17 mmol/L (22-30); Chloride 105 mmol/L (96-108); Globulin 2.4 gm/dL (2.2-3.7); Glomerular Filtration Rate 74; Glucose 122 mg/dL (70-105); Lactate Dehydrogenase 389 U/L (135-225); Phosphorous 0.7 mg/dL (2.5-4.5); Triglycerides 282 mg/dL (<150); Uric Acid 6.9 mg/dL (2.5-8.0)
--- NOTE | 2020-06-10 09:35 | Internal Med Progress Note ---
SUBJECTIVE Subjective Patient information: Note initiated : 06/10/20 at 9:28 am Service Date, if different from initiated Date: [] Patient: Shayna Brice 69 y/o F admitted on 06/09/20 for weakness. Chief Complaint: [ Ms. Brice is a 69 year old F with a history of DM type II/anxiety disorder/CAD /HLD who presented to the ER with worsening weakness, confusion and multiple falls over the last few days. Symptoms progressed to the point in the last 24 hours patient has not made any sense concerning family was brought into the ER. Initial work-up was consistent with severe volume depletion, hypotension, extensive biochemical abnormality with large anion gap acidosis/obtunded state/psychosis/hypokalemia 2.4/systolics low 90s. Patient received crystalloids boluses. Head CT suggestive of subdural hygroma for which neurosurgery was consulted by ER. No emergent intervention was indicated. Negative urine drug screen/alcohol level. Salicylates pending. Lactic acid over 9. COVID-19 test pending. White count 11.2 bilirubin 1.8. Patient remained altered and encephalopathic occasionally moving her arms but not to able to provide any history. Most of the history was obtained from . In light of above hospitalist service was consulted for admission At the time of my evaluation patient is gravely encephalopathic. GCS 3, unable to provide answers to any question or review of systems. She is tachycardic/Dunn is draining concentrated urine. Multiple bruises on the body secondary to falls. Restless and intermittently agitated pulling on lines and tubes. 06/10-patient clinically improving. map barely at goal. Not requiring vasopressors however remains entirely encephalopathic with GCS 2. White count 12.4, hemoglobin 10.2. Cultures negative so far. Lactic acid downtrending to 2.7 this morning. From 7.1, anion gap improved to 22. Blood sugars improved to 122. Phosphorus 0.7 on replacement. Potassium 2.7 on replacement. Pyuria on urine. Nursing staff expressed concern about alcohol withdrawal and currently on Ativan, urine and blood cultures pending. On empiric antibiotic coverage. Low procalcitonin. Constitutional Vitals: Vital Signs Temp Pulse Resp BP Pulse Ox 97.8 F 111 H 21 102/63 98 06/10/20 07:57 06/10/20 07:57 06/10/20 07:57 06/10/20 07:57 06/10/20 07:57 Period Temp Pulse Resp BP Sys/[place] Pulse Ox Last 24 Hr 97.0 F-99.5 F 101-119 16-36 89-165/39-133 95-100 Intake and Output 06/09/20 06/10/20 06/10/20 21:59 05:59 13:59 Intake Total 2153 590 80 Output Total 250 250 150 Balance 1903 340 -70 Weight 65.499 kg encephalopathic/confused Telemetry tachycardia 110 Dunn is draining dark urine Restless anxious Intake & Output: Intake & Output 06/09/20 06/10/20 06/10/20 21:59 05:59 13:59 Intake Total 2153 590 80 Output Total 250 250 150 Balance 1903 340 -70 Weight 65.499 kg Intake: IV 3 590 50 Sodium Chloride 0.9% 1,000 ml @ 1000 525 75 mls/hr IV .[id number] [facility] Rx#: [id number] Sodium Chloride 0.9% 500 ml @ 500 Wide Open IV B[facility]US ONE Rx#: [id number] Lactated Ringers 1,000 ml @ 75 338 mls/hr IV .[id number] [facility] Rx#: [id number] Vancomycin 1,000 mg In Sodium 250 Chloride 0.9% 250 ml @ 250 mls/ hr IV DAILY [facility] Rx#:[id number] Rocephin 2 gm In Dextrose 5% in 50 Water 50 ml @ 100 mls/hr IV DAILY [facility] Rx#:[id number] Oral 0 30 Output: Urine Catheter Amount 125 250 150 Void Amount 125 Other: Urine Appearance Clear Clear Clear Dunn Clear Clear Clear Urine Color Dark Yellow Dark Yellow Dark Yellow Dunn Dark Yellow Dark Yellow Dark Yellow Urine Odor Normal Normal Strong Dunn Strong OBJ DATA Labs CBC & Chem 7: 06/10/20 04:35 06/10/20 04:35 Labs: Abnormal Lab Results 06/10/20 06/10/20 06/10/20 04:35 04:35 04:35 WBC 12.4 H RBC 3.43 L Hgb 10.2 L Hct 33.1 L MCHC 30.8 L RDW 15.1 H Neut % (Auto) 83.4 H Lymph % (Auto) 13.0 L Lymph # (Auto) Absolute Neutrophils 10.36 H D-Dimer 1.36 H VBG Lactic Acid Potassium 2.7 L* Chloride Carbon Dioxide 17 L Anion Gap 22.0 H BUN Glucose 122 H Calcium 7.5 L Phosphorus 0.7 L Ferritin 955.9 H Total Bilirubin 1.1 H Direct Bilirubin 0.5 H Lactate Dehydrogenase 389 H C-Reactive Protein 7.00 H Total Protein 5.5 L Albumin 3.1 L Triglycerides 282 H Procalcitonin Urine Protein Urine Glucose (UA) Urine Ketones Urine Nitrate Urine Bilirubin Urine Urobilinogen Ur Leukocyte Esterase Urine RBC Urine WBC Urine Bacteria Hyaline Casts Urine Mucus Ethyl Alcohol 06/10/20 06/10/20 06/09/20 04:35 04:35 18:08 WBC RBC Hgb Hct MCHC RDW Neut % (Auto) Lymph % (Auto) Lymph # (Auto) Absolute Neutrophils D-Dimer VBG Lactic Acid 2.7 H 7.1 H* Potassium Chloride Carbon Dioxide Anion Gap BUN Glucose Calcium Phosphorus Ferritin Total Bilirubin Direct Bilirubin Lactate Dehydrogenase C-Reactive Protein Total Protein Albumin Triglycerides Procalcitonin 0.34 H Urine Protein Urine Glucose (UA) Urine Ketones Urine Nitrate Urine Bilirubin Urine Urobilinogen Ur Leukocyte Esterase Urine RBC Urine WBC Urine Bacteria Hyaline Casts Urine Mucus Ethyl Alcohol 06/09/20 06/09/20 06/09/20 14:50 07:01 07:01 WBC RBC Hgb Hct MCHC RDW Neut % (Auto) Lymph % (Auto) Lymph # (Auto) Absolute Neutrophils D-Dimer VBG Lactic Acid Potassium 2.4 L* Chloride 88 L Carbon Dioxide 17 L Anion Gap 28.0 H BUN 33 H Glucose 291 H Calcium Phosphorus Ferritin Total Bilirubin 1.8 H Direct Bilirubin Lactate Dehydrogenase C-Reactive Protein Total Protein Albumin Triglycerides Procalcitonin Urine Protein 100 A Urine Glucose (UA) 50 A Urine Ketones 20 A Urine Nitrate Pos A Urine Bilirubin 2.0 A Urine Urobilinogen 4.0 A Ur Leukocyte Esterase 75 A Urine RBC 27 H Urine WBC 41 H Urine Bacteria Few A Hyaline Casts 9 H Urine Mucus Many A Ethyl Alcohol 0.010 H 06/09/20 07:01 WBC 11.2 H RBC Hgb Hct MCHC RDW Neut % (Auto) 81.6 H Lymph % (Auto) 13.1 L Lymph # (Auto) 1.47 L Absolute Neutrophils 9.16 H D-Dimer VBG Lactic Acid Potassium Chloride Carbon Dioxide Anion Gap BUN Glucose Calcium Phosphorus Ferritin Total Bilirubin Direct Bilirubin Lactate Dehydrogenase C-Reactive Protein Total Protein Albumin Triglycerides Procalcitonin Urine Protein Urine Glucose (UA) Urine Ketones Urine Nitrate Urine Bilirubin Urine Urobilinogen Ur Leukocyte Esterase Urine RBC Urine WBC Urine Bacteria Hyaline Casts Urine Mucus Ethyl Alcohol Meds: Medications Acetaminophen (Tylenol) 650 mg PO Q4-6HP PRN; Protocol PRN Reason: Per Pain Protocol/Fever > 101 Albuterol/Ipratropium (Duoneb) 3 ml NEB QIDP PRN PRN Reason: Shortness Of Breath Atorvastatin Calcium (Lipitor) 20 mg PO HS [facility] Last Admin: 06/09/20 21:30 Dose: Not Given Documented by: Bisacodyl (Dulcolax) 10 mg AK Q2-3DAYS PRN PRN Reason: Constipation Calcium Chloride (Calcium Chloride) 1,000 mg IV ONCE PRN PRN Reason: CA+ = or < 7.8 Stop: 06/10/20 12:00 Clonazepam (Klonopin) 0.5 mg PO BID [facility] Last Admin: 06/10/20 08:17 Dose: 0.5 mg Documented by: Clopidogrel Bisulfate (Plavix) 75 mg PO QDAY [facility] Last Admin: 06/10/20 08:17 Dose: 75 mg Documented by: Cyanocobalamin (Vitamin B-12) 1,000 mcg PO BID [facility] Stop: 06/14/20 09:01 Last Admin: 06/10/20 08:28 Dose: 1,000 mcg Documented by: Dextrose (Dextrose 50%) 0 ml IV UD PRN PRN Reason: Hypoglycemia Diagnostic Test (Pha) (Accu-Chek) 1 each FS ACHS [facility] Last Admin: 06/10/20 07:15 Dose: 1 each Documented by: Docusate Sodium (Colace) 100 mg PO BID [facility] Last Admin: 06/10/20 08:28 Dose: 100 mg Documented by: Duloxetine HCl (Cymbalta) 40 mg PO DAILY [facility] Last Admin: 06/10/20 08:28 Dose: Not Given Documented by: Enoxaparin Sodium (Lovenox) 40 mg SQ DAILY [facility] Last Admin: 06/10/20 08:17 Dose: 40 mg Documented by: Glucose (Insta-Glucose) 15 gm PO PRN PRN PRN Reason: Hypoglycemia Guaifenesin/Codeine Phosphate (Robitussin Ac) 10 ml PO Q4HP PRN PRN Reason: Cough Hydralazine HCl (Apresoline) 10 mg IV Q4-6HP PRN PRN Reason: Hypertension Sodium Chloride (Sodium Chloride 0.9%) 1,000 mls @ 0 mls/hr IV BOLUS [facility] Last Infusion: 06/09/20 15:01 Dose: Infused Documented by: Potassium Chloride 40 meq/ (Dextrose) 520 mls @ 130 mls/hr IV UD PRN PRN Reason: K+ = or < 3.5 Acetaminophen (Ofirmev) 650 mg in 65 mls @ 130 mls/hr IV Q6HP PRN; Protocol PRN Reason: Per Pain Protocol/Fever > 101 Last Infusion: 06/10/20 03:30 Dose: Infused Documented by: Magnesium Sulfate (Magnesium Sulfate) 2 gm in 50 mls @ 50 mls/hr IV UD PRN PRN Reason: MG = or < 1.7 Ceftriaxone Sodium 2 gm/ (Dextrose) 50 mls @ 100 mls/hr IV DAILY [facility]; Protocol Last Infusion: 06/10/20 09:01 Dose: Infused Documented by: Vancomycin HCl 1,000 mg/ (Sodium Chloride) 250 mls @ 250 mls/hr IV DAILY [facility] Last Admin: 06/10/20 08:58 Dose: 250 mls/hr Documented by: Norepinephrine Bitartrate 8 mg (/ Sodium Chloride) 250 mls @ 18.75 mls/hr IV Q12HP PRN; Protocol PRN Reason: Hypotension Sodium Chloride (Sodium Chloride 0.9%) 250 mls @ 20 mls/hr IV .[id number] [facility] Last Admin: 06/10/20 07:17 Dose: Not Given Documented by: Sodium Chloride (Sodium Chloride 0.9%) 1,000 mls @ 75 mls/hr IV .[id number] [facility] Last Admin: 06/10/20 09:04 Dose: Not Given Documented by: Potassium Phosphate 40 meq/ (Dextrose) 509.0909 mls @ 127.273 mls/hr IV ONCE ONE Stop: 06/10/20 13:59 Insulin Human Lispro (Humalog) 0 unit SQ ACHS [facility]; Protocol Last Admin: 06/10/20 07:15 Dose: Not Given Documented by: Iron Carb/Multivit/Twodot/Folic Acid (Multivitamin W/Minerals) 1 tab PO DAILY [facility] Last Admin: 06/10/20 08:17 Dose: 1 tab Documented by: Lorazepam (Ativan) 0.5 mg IV Q4-6HP PRN PRN Reason: ANXIETY/SEDATION Last Admin: 06/10/20 06:27 Dose: 0.5 mg Documented by: Melatonin (Melatonin 3mg Tablet) 3 mg PO HSP PRN PRN Reason: Insomnia Metoprolol Tartrate (Lopressor) 5 mg IV Q5M PRN PRN Reason: Heart Rate > 140 bpm Nortriptyline HCl (Pamelor) 25 mg PO QHS [facility] Last Admin: 06/09/20 21:30 Dose: Not Given Documented by: Ondansetron HCl (Zofran Odt) 4 mg SL Q4-6HP PRN; Protocol PRN Reason: Nausea And Vomiting Ondansetron HCl (Zofran) 4 mg IV Q4-6HP PRN; Protocol PRN Reason: Nausea And Vomiting (Budesonide- Formoterol [ Symbicort] 80 Mcg/4. 5 Mcg Inhaler 2 dose INH BIDP PRN PRN Reason: Shortness Of Breath Polyethylene Glycol (Miralax) 17 gm PO DAILYP PRN PRN Reason: Constipation Potassium Chloride (Klor-Con) 40 meq PO DAILYP PRN PRN Reason: K+ < 3.5 Senna/Docusate Sodium (Senna Plus Tablet) 1 tab PO HS [facility] Last Admin: 06/09/20 21:30 Dose: Not Given Documented by: Sodium Chloride (Saline Flush) 10 ml IV Q8 [facility] Last Admin: 06/10/20 07:12 Dose: 10 ml Documented by: Thiamine HCl (Vitamin B1) 100 mg PO DAILY [facility] Last Admin: 06/10/20 08:28 Dose: 100 mg Documented by: Topiramate (Topamax) 100 mg PO BID [facility] Last Admin: 06/10/20 08:17 Dose: 100 mg Documented by: Vancomycin HCl (Vancomycin Per Pharmacy) 1 order IV UD [facility]; Protocol A/P Narrative A/P Narrative: * Circulatory shock-likely secondary sepsis. Improving with crystalloid challenge. Vasopressors on hold. Improving lactate down from 9 ->2.7. Improving endorgan dysfunction with downtrending creatinine/bilirubin. * Complicated UTI-await cultures. Continue antibiotic coverage * Anion gap metabolic acidosis, likely secondary to lactic acidosis. Clinically improving * Acute change in mental status-likely infectious/toxic metabolic likely secondary to AGMA, rule out Covid 19. Lumbar puncture if indicated. Empiric antibiotics including vancomycin/Rocephin. * Critical hypokalemia-potassium 2.7 on IV replacement * Low phosphorus 8.7 on replacement * Alcohol dependence with withdrawal continue withdrawal protocol. * Volume depletion with GIOVANNA-responded well to crystalloids. * Elevated bilirubin-sepsis endorgan dysfunction clinically improving with management of sepsis. Bilirubin 1.1 * History of DM type II-basal prandial insulin/CC diet * History of COPD continue bronchodilators * Anxiety disorder continue clonazepam/duloxetine/trazodone * Neuropathy continue nortriptyline * Hyperlipemia continue statin * Full code * Prophylaxis Lovenox Plan * Clinical improvement noted. Cataumet 2 score remains high at 16 * Continue aggressive crystalloids/broad antibiotic coverage and vasopressors as indicated * Replace potassium and phosphorus * Alcohol withdrawal protocol * Nutrition support * Pre-existing medical condition management home meds * Discharge planning coordination per case management Critical care time spent in excess of 35 minutes Time Spent With Patient Time: Total time spent is greater than 50% in coordination of care (as documented) at patient's floor/unit and/or counseling patient:
[2020-06-10] MEDS ORDERED: POTASSIUM PHOSPHATE 40 MEQ in DEXTROSE 5% IN WATER 500 ML IV ONE (10:00)
--- NOTE | 2020-06-10 13:28 | Internal Med Progress Note ---
SUBJECTIVE Subjective Patient information: Note initiated : 06/10/20 at 1:18 pm Service Date, if different from initiated Date: [] Patient: Shayna Brice 69 y/o F admitted on 06/09/20 for weakness. Chief Complaint: [] Interval history: Ms. Brice is a 69 year old F with a history of DM type II/anxiety disorder/CAD/HLD who presented to the ER with worsening weakness, confusion and multiple falls over the last few days. Symptoms progressed to the point in the last 24 hours patient has not made any sense concerning family was brought into the ER. Initial work-up was consistent with severe volume depletion, hypotension, extensive biochemical abnormality with large anion gap acidosis/obtunded state/psychosis/hypokalemia 2.4/systolics low 90s. Patient received crystalloids boluses. Head CT suggestive of subdural hygroma for which neurosurgery was consulted by ER. No emergent intervention was indicated. Negative urine drug screen/alcohol level. Salicylates pending. Lactic acid over 9. COVID-19 test pending. White count 11.2 bilirubin 1.8. Patient remained altered and encephalopathic occasionally moving her arms but not to abl e to provide any history. Most of the history was obtained from . In light of above hospitalist service was consulted for admission At the time of my evaluation patient is gravely encephalopathic. GCS 3, unable to provide answers to any question or review of systems. She is tachycardic/ Dunn is draining concentrated urine. Multiple bruises on the body secondary to falls. Restless and intermittently agitated pulling on lines and tubes. 06/10-patient clinically improving. map barely at goal. Not requiring vasopressors however remains entirely encephalopathic with GCS 2. White count 12.4, hemoglobin 10.2. Cultures negative so far. Lactic acid downtrending to 2.7 this morning. From 7.1, anion gap improved to 22. Blood sugars improved to 122. Phosphorus 0.7 on replacement. Potassium 2.7 on replacement. Pyuria on urine. Nursing staff expressed concern about alcohol withdrawal and currently on Ativan, urine and blood cultures pending. On empiric antibiotic coverage. Low procalcitonin. 06/11 Constitutional Vitals: Vital Signs Temp Pulse Resp BP Pulse Ox 96.7 F L 97 H 20 125/84 97 06/10/20 12:00 06/10/20 12:00 06/10/20 12:00 06/10/20 12:00 06/10/20 12:00 Period Temp Pulse Resp BP Sys/Malone Pulse Ox Last 24 Hr 96.7 F-99.5 F 97-111 - 89-165/39-84 95-100 Intake and Output 06/09/20 06/10/20 06/10/20 21:59 05:59 13:59 Intake Total 2153 590 330 Output Total 250 250 400 Balance 1903 340 -70 Weight 65.499 kg 65.499 kg Patient Weight 06/11/20 05:59 Weight 65.499 kg Intake & Output: Intake & Output 06/09/20 06/10/20 06/10/20 21:59 05:59 13:59 Intake Total 2153 590 330 Output Total 250 250 400 Balance 1903 340 -70 Weight 65.499 kg 65.499 kg Intake: IV 2153 590 300 Sodium Chloride 0.9% 1,000 ml @ 1000 525 75 mls/hr IV .[id number] [facility] Rx#: [id number] Sodium Chloride 0.9% 500 ml @ 500 Wide Open IV BOLUS ONE Rx#: [id number] Lactated Ringers 1,000 ml @ 75 338 mls/hr IV .[id number] [facility] Rx#: [id number] Vancomycin 1,000 mg In Sodium 250 250 Chloride 0.9% 250 ml @ 250 mls/ hr IV DAILY [facility] Rx#:[id number] Rocephin 2 gm In Dextrose 5% in 50 Water 50 ml @ 100 mls/hr IV DAILY [facility] Rx#:[id number] Oral 0 30 Output: Urine Catheter Amount 125 250 400 Void Amount 125 Other: Meal Breakfast Percent of Meal Consumed 0% Feeding Ability Total Assistance Urine Appearance Clear Clear Clear Dunn Clear Clear Clear Urine Color Dark Yellow Dark Yellow Dark Yellow Dunn Dark Yellow Dark Yellow Dark Yellow Urine Odor Normal Normal Normal Dunn Strong Exam: General: Alert, Awake, No acute Distress Eyes/N/T: EOMI, Head/Neck: neck supple, CV: RRR, No murmurs, Pulm: Clear b/l, no wheezing/rhonchi/rales Abd: soft, nontender, +BS x4 Ext: no clubbing/cyanosis/edema Neuro: Alert, confusion, no focal deficits, moves all extremities, Skin: warm/dry OBJ DATA Labs CBC & Chem 7: 06/10/20 04:35 06/10/20 04:35 Labs: Abnormal Lab Results 06/10/20 06/10/20 06/10/20 04:35 04:35 04:35 WBC 12.4 H RBC 3.43 L Hgb 10.2 L Hct 33.1 L MCHC 30.8 L RDW 15.1 H Neut % (Auto) 83.4 H Lymph % (Auto) 13.0 L Lymph # (Auto) Absolute Neutrophils 10.36 H D-Dimer 1.36 H VBG Lactic Acid Potassium 2.7 L* Chloride Carbon Dioxide 17 L Anion Gap 22.0 H BUN Glucose 122 H Calcium 7.5 L Phosphorus 0.7 L Ferritin 955.9 H Total Bilirubin 1.1 H Direct Bilirubin 0.5 H Lactate Dehydrogenase 389 H C-Reactive Protein 7.00 H Total Protein 5.5 L Albumin 3.1 L Triglycerides 282 H Procalcitonin Urine Protein Urine Glucose (UA) Urine Ketones Urine Nitrate Urine Bilirubin Urine Urobilinogen Ur Leukocyte Esterase Urine RBC Urine WBC Urine Bacteria Hyaline Casts Urine Mucus Ethyl Alcohol 06/10/20 06/10/20 06/09/20 04:35 04:35 18:08 WBC RBC Hgb Hct MCHC RDW Neut % (Auto) Lymph % (Auto) Lymph # (Auto) Absolute Neutrophils D-Dimer VBG Lactic Acid 2.7 H 7.1 H* Potassium Chloride Carbon Dioxide Anion Gap BUN Glucose Calcium Phosphorus Ferritin Total Bilirubin Direct Bilirubin Lactate Dehydrogenase C-Reactive Protein Total Protein Albumin Triglycerides Procalcitonin 0.34 H Urine Protein Urine Glucose (UA) Urine Ketones Urine Nitrate Urine Bilirubin Urine Urobilinogen Ur Leukocyte Esterase Urine RBC Urine WBC Urine Bacteria Hyaline Casts Urine Mucus Ethyl Alcohol 06/09/20 06/09/20 06/09/20 14:50 07:01 07:01 WBC RBC Hgb Hct MCHC RDW Neut % (Auto) Lymph % (Auto) Lymph # (Auto) Absolute Neutrophils D-Dimer VBG Lactic Acid Potassium 2.4 L* Chloride 88 L Carbon Dioxide 17 L Anion Gap 28.0 H BUN 33 H Glucose 291 H Calcium Phosphorus Ferritin Total Bilirubin 1.8 H Direct Bilirubin Lactate Dehydrogenase C-Reactive Protein Total Protein Albumin Triglycerides Procalcitonin Urine Protein 100 A Urine Glucose (UA) 50 A Urine Ketones 20 A Urine Nitrate Pos A Urine Bilirubin 2.0 A Urine Urobilinogen 4.0 A Ur Leukocyte Esterase 75 A Urine RBC 27 H Urine WBC 41 H Urine Bacteria Few A Hyaline Casts 9 H Urine Mucus Many A Ethyl Alcohol 0.010 H 06/09/20 07:01 WBC 11.2 H RBC Hgb Hct MCHC RDW Neut % (Auto) 81.6 H Lymph % (Auto) 13.1 L Lymph # (Auto) 1.47 L Absolute Neutrophils 9.16 H D-Dimer VBG Lactic Acid Potassium Chloride Carbon Dioxide Anion Gap BUN Glucose Calcium Phosphorus Ferritin Total Bilirubin Direct Bilirubin Lactate Dehydrogenase C-Reactive Protein Total Protein Albumin Triglycerides Procalcitonin Urine Protein Urine Glucose (UA) Urine Ketones Urine Nitrate Urine Bilirubin Urine Urobilinogen Ur Leukocyte Esterase Urine RBC Urine WBC Urine Bacteria Hyaline Casts Urine Mucus Ethyl Alcohol Meds: Medications Acetaminophen (Tylenol) 650 mg PO Q4-6HP PRN; Protocol PRN Reason: Per Pain Protocol/Fever > 101 Albuterol/Ipratropium (Duoneb) 3 ml NEB QIDP PRN PRN Reason: Shortness Of Breath Atorvastatin Calcium (Lipitor) 20 mg PO HS [facility] Last Admin: 06/09/20 21:30 Dose: Not Given Documented by: Bisacodyl (Dulcolax) 10 mg MD Q2-3DAYS PRN PRN Reason: Constipation Clonazepam (Klonopin) 0.5 mg PO BID [facility] Last Admin: 06/10/20 08:17 Dose: 0.5 mg Documented by: Clopidogrel Bisulfate (Plavix) 75 mg PO QDAY [facility] Last Admin: 06/10/20 08:17 Dose: 75 mg Documented by: Cyanocobalamin (Vitamin B-12) 1,000 mcg PO BID [facility] Stop: 06/14/20 09:01 Last Admin: 06/10/20 08:28 Dose: 1,000 mcg Documented by: Dextrose (Dextrose 50%) 0 ml IV UD PRN PRN Reason: Hypoglycemia Diagnostic Test (Pha) (Accu-Chek) 1 each FS ACHS [facility] Last Admin: 06/10/20 11:54 Dose: 1 each Documented by: Docusate Sodium (Colace) 100 mg PO BID [facility] Last Admin: 06/10/20 08:28 Dose: 100 mg Documented by: Duloxetine HCl (Cymbalta) 40 mg PO DAILY [facility] Last Admin: 06/10/20 08:28 Dose: Not Given Documented by: Enoxaparin Sodium (Lovenox) 40 mg SQ DAILY [facility] Last Admin: 06/10/20 08:17 Dose: 40 mg Documented by: Glucose (Insta-Glucose) 15 gm PO PRN PRN PRN Reason: Hypoglycemia Guaifenesin/Codeine Phosphate (Robitussin Ac) 10 ml PO Q4HP PRN PRN Reason: Cough Hydralazine HCl (Apresoline) 10 mg IV Q4-6HP PRN PRN Reason: Hypertension Sodium Chloride (Sodium Chloride 0.9%) 1,000 mls @ 0 mls/hr IV BOLUS [facility] Last Admin: 06/10/20 12:01 Dose: Not Given Documented by: Potassium Chloride 40 meq/ (Dextrose) 520 mls @ 130 mls/hr IV UD PRN PRN Reason: K+ = or < 3.5 Acetaminophen (Ofirmev) 650 mg in 65 mls @ 130 mls/hr IV Q6HP PRN; Protocol PRN Reason: Per Pain Protocol/Fever > 101 Last Infusion: 06/10/20 03:30 Dose: Infused Documented by: Magnesium Sulfate (Magnesium Sulfate) 2 gm in 50 mls @ 50 mls/hr IV UD PRN PRN Reason: MG = or < 1.7 Ceftriaxone Sodium 2 gm/ (Dextrose) 50 mls @ 100 mls/hr IV DAILY [facility]; Protocol Last Infusion: 06/10/20 09:01 Dose: Infused Documented by: Vancomycin HCl 1,000 mg/ (Sodium Chloride) 250 mls @ 250 mls/hr IV DAILY [facility] Last Infusion: 06/10/20 10:18 Dose: Infused Documented by: Norepinephrine Bitartrate 8 mg (/ Sodium Chloride) 250 mls @ 18.75 mls/hr IV Q12HP PRN; Protocol PRN Reason: Hypotension Sodium Chloride (Sodium Chloride 0.9%) 250 mls @ 20 mls/hr IV .[id number] [facility] Last Admin: 06/10/20 07:17 Dose: Not Given Documented by: Sodium Chloride (Sodium Chloride 0.9%) 1,000 mls @ 75 mls/hr IV .[id number] [facility] Last Admin: 06/10/20 09:04 Dose: Not Given Documented by: Potassium Phosphate 40 meq/ (Dextrose) 509.0909 mls @ 127.273 mls/hr IV ONCE ONE Stop: 06/10/20 13:59 Last Admin: 06/10/20 10:17 Dose: 127.273 mls/hr Documented by: Insulin Human Lispro (Humalog) 0 unit SQ ACHS [facility]; Protocol Last Admin: 06/10/20 11:57 Dose: 1 units Documented by: Iron Carb/Multivit/Ono/Folic Acid (Multivitamin W/Minerals) 1 tab PO DAILY [facility] Last Admin: 06/10/20 08:17 Dose: 1 tab Documented by: Lorazepam (Ativan) 0.5 mg IV Q4-6HP PRN PRN Reason: ANXIETY/SEDATION Last Admin: 06/10/20 10:32 Dose: 0.5 mg Documented by: Melatonin (Melatonin 3mg Tablet) 3 mg PO HSP PRN PRN Reason: Insomnia Metoprolol Tartrate (Lopressor) 5 mg IV Q5M PRN PRN Reason: Heart Rate > 140 bpm Nortriptyline HCl (Pamelor) 25 mg PO QHS [facility] Last Admin: 06/09/20 21:30 Dose: Not Given Documented by: Ondansetron HCl (Zofran Odt) 4 mg SL Q4-6HP PRN; Protocol PRN Reason: Nausea And Vomiting Ondansetron HCl (Zofran) 4 mg IV Q4-6HP PRN; Protocol PRN Reason: Nausea And Vomiting (Budesonide- Formoterol [ Symbicort] 80 Mcg/4. 5 Mcg Inhaler 2 dose INH BIDP PRN PRN Reason: Shortness Of Breath Polyethylene Glycol (Miralax) 17 gm PO DAILYP PRN PRN Reason: Constipation Potassium Chloride (Klor-Con) 40 meq PO DAILYP PRN PRN Reason: K+ < 3.5 Senna/Docusate Sodium (Senna Plus Tablet) 1 tab PO HS [facility] Last Admin: 06/09/20 21:30 Dose: Not Given Documented by: Sodium Chloride (Saline Flush) 10 ml IV Q8 [facility] Last Admin: 06/10/20 07:12 Dose: 10 ml Documented by: Thiamine HCl (Vitamin B1) 100 mg PO DAILY [facility] Last Admin: 06/10/20 08:28 Dose: 100 mg Documented by: Topiramate (Topamax) 100 mg PO BID [facility] Last Admin: 06/10/20 08:17 Dose: 100 mg Documented by: Vancomycin HCl (Vancomycin Per Pharmacy) 1 order IV UD ROSANNE; Protocol A/P Narrative A/P Narrative: A: *Septic shock: Improving -Vasopressors on hold. Improving lactate down from 7>2.7. *Complicated UTI(GNB): *Anion gap metabolic acidosis: likely secondary to lactic acidosis. Clinically improving *Acute encephalopathy: likely infectious/toxic metabolic 2/2 above *Critical hypokalemia/phosphorus: *Alcohol dependence w/withdrawal: *Volume depletion: responded well to crystalloids. *Elevated bilirubin: 2/2 sepsis endorgan dysfunction clinically improving *DM type II: History of COPD continue bronchodilators *Anxiety disorder:Neuropathy continue nortriptyline Plan: -Celina 2 score remains high at 16 -Continue aggressive crystalloids and vasopressors as indicated -broad antibiotic coverage Replace potassium and phosphorus -Alcohol withdrawal protocol -basal prandial insulin/CC diet -continue clonazepam/duloxetine/trazodone -cont home statin/Plavix -Nutrition support -pt/ot -ppx: Lovenox Full code Time Spent With Patient Time: Total time spent is greater than 50% in coordination of care (as documented) at patient's floor/unit and/or counseling patient:
[2020-06-10] MEDS: ACETAMINOPHEN 325 MG TABLET PO PRN (14:30)
[2020-06-10] MEDS: ATORVASTATIN 20 MG TABLET PO SCH (20:44)
[2020-06-10] MEDS: NORTRIPTYLINE 25 MG CAPSULE PO SCH (20:44)
[2020-06-10] MEDS: SENNOSIDES/DOCUSATE SODIUM 1 TAB TABLET PO SCH (21:27)
[2020-06-11] MEDS: ACETAMINOPHEN 325 MG TABLET PO PRN ×3 (01:54→18:51)
[2020-06-11] MEDS: 0.9 % SODIUM CHLORIDE 10 ML SYRINGE IV SCH ×7 (02:05→22:58)
[2020-06-11] MEDS: LORazepam 2 MG/ML VIAL IV PRN ×4 (02:05→21:10)
[2020-06-11] MEDS: 0.9 % SODIUM CHLORIDE 1,000 ML IV SCH (06:31)
[2020-06-11] MEDS: INSULIN LISPRO 1 UNIT/0.01 ML UNIT SQ SCH ×4 (07:16→20:29)
[2020-06-11 07:53] LABS: Basophils # (Auto) 0.02 K/mcL (0.00-0.20); Basophils % (Auto) 0.2 % (0.0-2.0); Eosinophils # (Auto) 0.09 K/mcL (0.00-0.70); Eosinophils % (Auto) 1.1 % (0.0-7.0); Hematocrit 27.1 % (36.0-48.0); Hemoglobin 9.2 g/dL (12.0-15.0); Lymphocytes # (Auto) 2.14 K/mcL (1.50-4.80); Lymphocytes % (Auto) 25.7 % (15.0-49.0); Mean Cell Volume 87.7 fL (80.0-100.0); Mean Corpuscular HGB Conc 33.9 g/dL (31.0-36.0); Mean Platelet Volume 10.2 fL (7.4-10.4); Monocytes # (Auto) 0.22 K/mcL (0.10-0.90); Monocytes % (Auto) 2.6 % (1.0-12.0); Neutrophils % (Auto) 70.4 % (38.0-78.0); Platelet Count 147 K/mcL (140-440); RBC 3.09 M/mcL (4.00-5.20); Red Cell Distribution Width 14.7 % (11.5-14.5); WBC 8.3 K/mcL (4.5-11.0)
[2020-06-11] MEDS ORDERED: OLANZapine 5 MG TABLET PO PRN (08:03)
--- NOTE | 2020-06-11 08:06 | Internal Med Progress Note ---
SUBJECTIVE Subjective Patient information: Note initiated : 06/11/20 at 7:57 am Service Date, if different from initiated Date: [] Patient: Shayna Brice 69 y/o F admitted on 06/09/20 for weakness. Chief Complaint: [] Interval history: Ms. Brice is a 69 year old F with a history of DM type II/anxiety disorder/CAD/HLD who presented to the ER with worsening weakness, confusion and multiple falls over the last few days. Symptoms progressed to the point in the last 24 hours patient has not made any sense concerning family was brought into the ER. Initial work-up was consistent with severe volume depletion, hypotension, extensive biochemical abnormality with large anion gap acidosis/obtunded state/psychosis/hypokalemia 2.4/systolics low 90s. Patient received crystalloids boluses. Head CT suggestive of subdural hygroma for which neurosurgery was consulted by ER. No emergent intervention was indicated. Negative urine drug screen/alcohol level. Salicylates pending. Lactic acid over 9. COVID-19 test pending. White count 11.2 bilirubin 1.8. Patient remained altered and encephalopathic occasionally moving her arms but not to abl e to provide any history. Most of the history was obtained from . In light of above hospitalist service was consulted for admission At the time of my evaluation patient is gravely encephalopathic. GCS 3, unable to provide answers to any question or review of systems. She is tachycardic/ Dunn is draining concentrated urine. Multiple bruises on the body secondary to falls. Restless and intermittently agitated pulling on lines and tubes. 06/10-patient clinically improving. map barely at goal. Not requiring vasopressors however remains entirely encephalopathic with GCS 2. White count 12.4, hemoglobin 10.2. Cultures negative so far. Lactic acid downtrending to 2.7 this morning. From 7.1, anion gap improved to 22. Blood sugars improved to 122. Phosphorus 0.7 on replacement. Potassium 2.7 on replacement. Pyuria on urine. Nursing staff expressed concern about alcohol withdrawal and currently on Ativan, urine and blood cultures pending. On empiric antibiotic coverage. Low procalcitonin. 06/11 Nurse is unable to get the patient to take in orally this morning, which is a improvement since admission. Off vasopressors. Unknown alcohol intake at home. Nurse also discussed history with the who states that patient has a history of falling. She also has a history of confusion and agitation - sounds like she has undiagnosed dementia. Patient awake and verbalizes her desires but does not answer questions. Unable to gather review of systems. Constitutional Vitals: Vital Signs Temp Pulse Resp BP Pulse Ox 96.6 F L 105 H 16 94/62 100 06/11/20 06:00 06/11/20 06:00 06/11/20 06:43 06/11/20 06:00 06/11/20 06:43 Period Temp Pulse Resp BP Sys/Malone Pulse Ox Last 24 Hr 96.6 F-97.8 F 97-109 14-24 94-128/56-107 97-100 Intake and Output 06/10/20 06/11/20 06/11/20 21:59 05:59 13:59 Intake Total 1599.0909 120 40 Output Total 550 550 325 Balance 1049.0909 -430 -285 Weight 66.179 kg Intake & Output: Intake & Output 06/10/20 06/11/20 06/11/20 21:59 05:59 13:59 Intake Total 1599.0909 120 40 Output Total 550 550 325 Balance 1049.0909 -430 -285 Weight 66.179 kg Intake: IV 1569.0909 Sodium Chloride 0.9% 1,000 ml @ 475 75 mls/hr IV .[id number] ROSANNE Rx#: [id number] Potassium Chloride 40 Meq In 520 Dextrose 5% in Water 500 ml @ 130 mls/hr IV UD PRN Rx#: [id number] Potassium Phosphate 40 Meq In 509.0909 Dextrose 5% in Water 500 ml @ 127.273 mls/hr IV ONCE ONE Rx#: [id number] Oral 30 120 40 Output: Urine Catheter Amount 550 550 200 Void Amount 125 Other: Meal Lunch Magic Cup Percent of Meal Consumed 0% 100% Feeding Ability Total Assistance Total Assistance Urine Appearance Clear Clear Clear Dunn Clear Clear Clear Urine Color Bright Yellow Bright Yellow Bright Yellow Dunn Bright Yellow Bright Yellow Bright Yellow Urine Odor Normal Normal Normal Dunn Normal Exam: General: Alert, Awake, No acute Distress Eyes/N/T: EOMI, Head/Neck: neck supple, CV: RRR, No murmurs, Pulm: Clear b/l, no wheezing/rhonchi/rales Abd: soft, nontender, +BS x4 Ext: no clubbing/cyanosis/edema Neuro: Alert, confusion-dementia, no focal deficits, moves all extremities, Skin: warm/dry OBJ DATA Labs CBC & Chem 7: 06/11/20 05:53 06/11/20 05:53 Labs: Abnormal Lab Results 06/11/20 06/10/20 06/10/20 05:53 04:35 04:35 WBC RBC 3.09 L Hgb 9.2 L Hct 27.1 L MCHC RDW 14.7 H Neut % (Auto) Lymph % (Auto) Lymph # (Auto) Absolute Neutrophils D-Dimer 1.36 H VBG Lactic Acid Potassium 2.7 L* Chloride Carbon Dioxide 17 L Anion Gap 22.0 H BUN Glucose 122 H Calcium 7.5 L Phosphorus 0.7 L Ferritin 955.9 H Total Bilirubin 1.1 H Direct Bilirubin 0.5 H Lactate Dehydrogenase 389 H C-Reactive Protein 7.00 H Total Protein 5.5 L Albumin 3.1 L Triglycerides 282 H Procalcitonin Urine Protein Urine Glucose (UA) Urine Ketones Urine Nitrate Urine Bilirubin Urine Urobilinogen Ur Leukocyte Esterase Urine RBC Urine WBC Urine Bacteria Hyaline Casts Urine Mucus Ethyl Alcohol 06/10/20 06/10/20 06/10/20 04:35 04:35 04:35 WBC 12.4 H RBC 3.43 L Hgb 10.2 L Hct 33.1 L MCHC 30.8 L RDW 15.1 H Neut % (Auto) 83.4 H Lymph % (Auto) 13.0 L Lymph # (Auto) Absolute Neutrophils 10.36 H D-Dimer VBG Lactic Acid 2.7 H Potassium Chloride Carbon Dioxide Anion Gap BUN Glucose Calcium Phosphorus Ferritin Total Bilirubin Direct Bilirubin Lactate Dehydrogenase C-Reactive Protein Total Protein Albumin Triglycerides Procalcitonin 0.34 H Urine Protein Urine Glucose (UA) Urine Ketones Urine Nitrate Urine Bilirubin Urine Urobilinogen Ur Leukocyte Esterase Urine RBC Urine WBC Urine Bacteria Hyaline Casts Urine Mucus Ethyl Alcohol 06/09/20 06/09/20 06/09/20 18:08 14:50 07:01 WBC RBC Hgb Hct MCHC RDW Neut % (Auto) Lymph % (Auto) Lymph # (Auto) Absolute Neutrophils D-Dimer VBG Lactic Acid 7.1 H* Potassium Chloride Carbon Dioxide Anion Gap BUN Glucose Calcium Phosphorus Ferritin Total Bilirubin Direct Bilirubin Lactate Dehydrogenase C-Reactive Protein Total Protein Albumin Triglycerides Procalcitonin Urine Protein 100 A Urine Glucose (UA) 50 A Urine Ketones 20 A Urine Nitrate Pos A Urine Bilirubin 2.0 A Urine Urobilinogen 4.0 A Ur Leukocyte Esterase 75 A Urine RBC 27 H Urine WBC 41 H Urine Bacteria Few A Hyaline Casts 9 H Urine Mucus Many A Ethyl Alcohol 0.010 H 06/09/20 06/09/20 07:01 07:01 WBC 11.2 H RBC Hgb Hct MCHC RDW Neut % (Auto) 81.6 H Lymph % (Auto) 13.1 L Lymph # (Auto) 1.47 L Absolute Neutrophils 9.16 H D-Dimer VBG Lactic Acid Potassium 2.4 L* Chloride 88 L Carbon Dioxide 17 L Anion Gap 28.0 H BUN 33 H Glucose 291 H Calcium Phosphorus Ferritin Total Bilirubin 1.8 H Direct Bilirubin Lactate Dehydrogenase C-Reactive Protein Total Protein Albumin Triglycerides Procalcitonin Urine Protein Urine Glucose (UA) Urine Ketones Urine Nitrate Urine Bilirubin Urine Urobilinogen Ur Leukocyte Esterase Urine RBC Urine WBC Urine Bacteria Hyaline Casts Urine Mucus Ethyl Alcohol Meds: Medications Acetaminophen (Tylenol) 650 mg PO Q4-6HP PRN; Protocol PRN Reason: Per Pain Protocol/Fever > 101 Last Admin: 06/11/20 01:54 Dose: 650 mg Documented by: Albuterol/Ipratropium (Duoneb) 3 ml NEB QIDP PRN PRN Reason: Shortness Of Breath Atorvastatin Calcium (Lipitor) 20 mg PO [facility] Last Admin: 06/10/20 20:44 Dose: 20 mg Documented by: Bisacodyl (Dulcolax) 10 mg ID Q2-3DAYS PRN PRN Reason: Constipation Clonazepam (Klonopin) 0.5 mg PO BID [facility] Last Admin: 06/10/20 21:27 Dose: 0.5 mg Documented by: Clopidogrel Bisulfate (Plavix) 75 mg PO QDAY [facility] Last Admin: 06/10/20 08:17 Dose: 75 mg Documented by: Cyanocobalamin (Vitamin B-12) 1,000 mcg PO BID [facility] Stop: 06/14/20 09:01 Last Admin: 06/10/20 21:27 Dose: 1,000 mcg Documented by: Dextrose (Dextrose 50%) 0 ml IV UD PRN PRN Reason: Hypoglycemia Diagnostic Test (Pha) (Accu-Chek) 1 each FS ACHS [facility] Last Admin: 06/11/20 07:14 Dose: 1 each Documented by: Docusate Sodium (Colace) 100 mg PO BID [facility] Last Admin: 06/10/20 21:27 Dose: 100 mg Documented by: Duloxetine HCl (Cymbalta) 40 mg PO DAILY [facility] Last Admin: 06/10/20 08:28 Dose: Not Given Documented by: Enoxaparin Sodium (Lovenox) 40 mg SQ DAILY [facility] Last Admin: 06/10/20 08:17 Dose: 40 mg Documented by: Glucose (Insta-Glucose) 15 gm PO PRN PRN PRN Reason: Hypoglycemia Guaifenesin/Codeine Phosphate (Robitussin Ac) 10 ml PO Q4HP PRN PRN Reason: Cough Hydralazine HCl (Apresoline) 10 mg IV Q4-6HP PRN PRN Reason: Hypertension Potassium Chloride 40 meq/ (Dextrose) 520 mls @ 130 mls/hr IV UD PRN PRN Reason: K+ = or < 3.5 Last Infusion: 06/10/20 18:48 Dose: Infused Documented by: Acetaminophen (Ofirmev) 650 mg in 65 mls @ 130 mls/hr IV Q6HP PRN; Protocol PRN Reason: Per Pain Protocol/Fever > 101 Last Infusion: 06/10/20 19:30 Dose: Infused Documented by: Magnesium Sulfate (Magnesium Sulfate) 2 gm in 50 mls @ 50 mls/hr IV UD PRN PRN Reason: MG = or < 1.7 Ceftriaxone Sodium 2 gm/ (Dextrose) 50 mls @ 100 mls/hr IV DAILY [facility]; Protocol Last Infusion: 06/10/20 09:01 Dose: Infused Documented by: Vancomycin HCl 1,000 mg/ (Sodium Chloride) 250 mls @ 250 mls/hr IV DAILY [facility] Last Infusion: 06/10/20 10:18 Dose: Infused Documented by: Norepinephrine Bitartrate 8 mg (/ Sodium Chloride) 250 mls @ 18.75 mls/hr IV Q12HP PRN; Protocol PRN Reason: Hypotension Sodium Chloride (Sodium Chloride 0.9%) 1,000 mls @ 60 mls/hr IV .[id number] [facility] Last Admin: 06/11/20 06:31 Dose: Not Given Documented by: Insulin Human Lispro (Humalog) 0 unit SQ ACHS [facility]; Protocol Last Admin: 06/11/20 07:16 Dose: Not Given Documented by: Iron Carb/Multivit/[place]/Folic Acid (Multivitamin W/Minerals) 1 tab PO DAILY [facility] Last Admin: 06/10/20 08:17 Dose: 1 tab Documented by: Lorazepam (Ativan) 0.5 mg IV Q4-6HP PRN PRN Reason: ANXIETY/SEDATION Last Admin: 06/11/20 02:05 Dose: 0.5 mg Documented by: Melatonin (Melatonin 3mg Tablet) 3 mg PO HSP PRN PRN Reason: Insomnia Metoprolol Tartrate (Lopressor) 5 mg IV Q5M PRN PRN Reason: Heart Rate > 140 bpm Nortriptyline HCl (Pamelor) 25 mg PO QHS [facility] Last Admin: 06/10/20 20:44 Dose: 25 mg Documented by: Ondansetron HCl (Zofran Odt) 4 mg SL Q4-6HP PRN; Protocol PRN Reason: Nausea And Vomiting Ondansetron HCl (Zofran) 4 mg IV Q4-6HP PRN; Protocol PRN Reason: Nausea And Vomiting (Budesonide- Formoterol [ Symbicort] 80 Mcg/4. 5 Mcg Inhaler 2 dose INH BIDP PRN PRN Reason: Shortness Of Breath Polyethylene Glycol (Miralax) 17 gm PO DAILYP PRN PRN Reason: Constipation Potassium Chloride (Klor-Con) 40 meq PO DAILYP PRN PRN Reason: K+ < 3.5 Senna/Docusate Sodium (Senna Plus Tablet) 1 tab PO HS [facility] Last Admin: 06/10/20 21:27 Dose: 1 tab Documented by: Sodium Chloride (Saline Flush) 10 ml IV Q8 [facility] Last Admin: 06/11/20 06:31 Dose: 10 ml Documented by: Thiamine HCl (Vitamin B1) 100 mg PO DAILY [facility] Last Admin: 06/10/20 08:28 Dose: 100 mg Documented by: Topiramate (Topamax) 100 mg PO BID [facility] Last Admin: 06/10/20 20:44 Dose: 100 mg Documented by: Vancomycin HCl (Vancomycin Per Pharmacy) 1 order IV UD [facility]; Protocol A/P Narrative A/P Narrative: A: *Septic shock: Improving -Vasopressors on hold. Improving lactate down from 7>2.7. -Leukocytosis resolved. *Complicated UTI(GNB + Pseudomonas): *Anion gap metabolic acidosis: likely secondary to lactic acidosis. Clinically improving *Acute encephalopathy superimposed on underlying Dementia: 2/2 above -appears to be essentially baseline per family *Dementia: *Critical hypokalemia/phosphorus/mag: *Alcohol dependence w/withdrawal: *Volume depletion: responded well to crystalloids. *Elevated bilirubin: 2/2 sepsis endorgan dysfunction. improved *DM type II: *COPD continue bronchodilators *Anxiety disorder: *Neuropathy: continue nortriptyline Plan: -Mitchell 2 score remains high at 16 -IVF's decrease as increased oral intake -Cefepime -Alcohol withdrawal protocol -Replace electrolytes prn -basal prandial insulin/CC diet -continue clonazepam/duloxetine/trazodone -cont home statin/Plavix -Nutrition support -pt/ot -ppx: Lovenox Full code Time Spent With Patient Time: Total time spent is greater than 50% in coordination of care (as documented) at patient's floor/unit and/or counseling patient:
[2020-06-11 08:15] LABS: ALT/SGPT 21 U/L (<40); AST/SGOT 25 U/L (<32); Albumin 2.6 gm/dL (3.2-5.2); Albumin/Globulin Ratio 1.2 (1.0-2.3); Alkaline Phosphatase 53 U/L (39-117); Bilirubin,Direct 0.4 mg/dL (<0.3); Bilirubin,Total 0.8 mg/dL (0.1-1.0); Blood Urea Nitrogen 6 mg/dL (8-23); Calcium 7.5 mg/dL (8.6-10.4); Carbon Dioxide 20 mmol/L (22-30); Chloride 107 mmol/L (96-108); Globulin 2.2 gm/dL (2.2-3.7); Glomerular Filtration Rate 91; Glucose 110 mg/dL (70-105); Lactate Dehydrogenase 445 U/L (135-225); Phosphorous 1.2 mg/dL (2.5-4.5); Triglycerides 255 mg/dL (<150); Uric Acid 4.3 mg/dL (2.5-8.0)
[2020-06-11] MEDS: TOPIRAMATE 100 MG TABLET PO SCH ×2 (08:20→20:25)
[2020-06-11] MEDS: DOCUSATE SODIUM 100 MG CAPSULE PO SCH ×2 (08:20→20:25)
[2020-06-11] MEDS: THIAMINE 100 MG TABLET PO SCH (08:20)
[2020-06-11] MEDS: CYANOCOBALAMIN (VITAMIN B-12) 500 MCG TABLET PO SCH ×2 (08:20→20:25)
[2020-06-11] MEDS: clonazePAM 0.5 MG TABLET PO SCH ×2 (08:20→20:25)
[2020-06-11] MEDS: CLOPIDOGREL 75 MG TABLET PO SCH (08:20)
[2020-06-11] MEDS: MULTIVIT,THER IRON,CA,FA & MIN 1 TABLET PO SCH (08:20)
[2020-06-11] MEDS: ENOXAPARIN 40 MG/0.4 ML SYRINGE SQ SCH (08:21)
[2020-06-11] MEDS ORDERED: MAGNESIUM SULFATE 2 GM/50 ML BAG IV ONE (08:22)
[2020-06-11] MEDS: CEFEPIME 2 GM VIAL IV SCH ×3 (08:34→22:43)
[2020-06-11] MEDS: DULoxetine 20 MG CAPSULE PO SCH ×2 (08:42→09:11)
[2020-06-11] MEDS: PHOSPHORUS 250 MG TABLET PO SCH ×4 (08:49→20:25)
[2020-06-11] MEDS ORDERED: POTASSIUM CHLORIDE 40 MEQ in DEXTROSE 5% IN WATER 500 ML IV ONE (09:00)
--- NOTE | 2020-06-11 09:51 | XRay Report ---
HISTORY: Increasing weakness FINDINGS: Lungs are clear and normally expanded. The heart size and pulmonary vasculature are normal. The mediastinum and vinny are normal. There has been no change since the recent chest x-ray done on 06/09/20. IMPRESSION: No acute abnormality Interpreted and Authenticated by: Abdirashid Sanchez 06/11/20
[2020-06-11] MEDS ORDERED: POTASSIUM CHLORIDE 20 MEQ in 0.45 % SODIUM CHLORIDE 1,000 ML IV SCH (10:00)
[2020-06-11] MEDS ORDERED: FLU VACC QS2020-21(6MOS UP)/PF 60 MCG/0.5 ML SYRINGE IM ONE (10:00)
[2020-06-11] MEDS: traMADol 50 MG TABLET PO PRN ×2 (10:09→16:58)
[2020-06-11] MEDS: chlordiazePOXIDE 25 MG CAPSULE PO PRN (18:51)
[2020-06-11] MEDS ORDERED: VANCOMYCIN PER PHARMACY IV SCH (19:17)
[2020-06-11] MEDS: VANCOMYCIN 1,000 MG in 0.9 % SODIUM CHLORIDE 250 ML IV SCH (20:21)
[2020-06-11] MEDS: ATORVASTATIN 20 MG TABLET PO SCH (20:25)
[2020-06-11] MEDS: NORTRIPTYLINE 25 MG CAPSULE PO SCH (20:25)
[2020-06-11] MEDS: SENNOSIDES/DOCUSATE SODIUM 1 TAB TABLET PO SCH (20:27)
[2020-06-11] MEDS ORDERED: MELATONIN 3 MG TABLET PO SCH (21:00)
[2020-06-12] MEDS: traMADol 50 MG TABLET PO PRN ×4 (00:49→23:35)
[2020-06-12] MEDS: 0.9 % SODIUM CHLORIDE 10 ML SYRINGE IV SCH ×6 (05:21→23:03)
[2020-06-12] MEDS: CEFEPIME 2 GM VIAL IV SCH ×3 (05:22→23:02)
[2020-06-12 06:59] LABS: Basophils # (Auto) 0.02 K/mcL (0.00-0.20); Basophils % (Auto) 0.3 % (0.0-2.0); Eosinophils # (Auto) 0.17 K/mcL (0.00-0.70); Eosinophils % (Auto) 2.4 % (0.0-7.0); Hematocrit 27.6 % (36.0-48.0); Hemoglobin 8.9 g/dL (12.0-15.0); Lymphocytes # (Auto) 1.48 K/mcL (1.50-4.80); Lymphocytes % (Auto) 20.8 % (15.0-49.0); Mean Corpuscular HGB Conc 32.2 g/dL (31.0-36.0); Mean Platelet Volume 9.6 fL (7.4-10.4); Monocytes # (Auto) 0.27 K/mcL (0.10-0.90); Monocytes % (Auto) 3.8 % (1.0-12.0); Neutrophils % (Auto) 72.7 % (38.0-78.0); Platelet Count 138 K/mcL (140-440); WBC 7.1 K/mcL (4.5-11.0)
[2020-06-12 07:22] LABS: ALT/SGPT 24 U/L (<40); AST/SGOT 27 U/L (<32); Albumin 2.5 gm/dL (3.2-5.2); Albumin/Globulin Ratio 1.1 (1.0-2.3); Alkaline Phosphatase 56 U/L (39-117); Bilirubin,Direct 0.4 mg/dL (<0.3); Bilirubin,Total 0.7 mg/dL (0.1-1.0); Blood Urea Nitrogen 7 mg/dL (8-23); Calcium 7.3 mg/dL (8.6-10.4); Carbon Dioxide 21 mmol/L (22-30); Chloride 107 mmol/L (96-108); Globulin 2.3 gm/dL (2.2-3.7); Glomerular Filtration Rate 97; Glucose 140 mg/dL (70-105); Lactate Dehydrogenase 385 U/L (135-225); Phosphorous 1.4 mg/dL (2.5-4.5); Triglycerides 230 mg/dL (<150); Uric Acid 3.5 mg/dL (2.5-8.0)
--- NOTE | 2020-06-12 07:26 | Internal Med Progress Note ---
SUBJECTIVE Subjective Patient information: Note initiated : 06/12/20 at 7:20 am Service Date, if different from initiated Date: [] Patient: Shayna Brice 69 y/o F admitted on 06/09/20 for weakness. Chief Complaint: [] Interval history: Ms. Brice is a 69 year old F with a history of DM type II/anxiety disorder/CAD/HLD who presented to the ER with worsening weakness, confusion and multiple falls over the last few days. Symptoms progressed to the point in the last 24 hours patient has not made any sense concerning family was brought into the ER. Initial work-up was consistent with severe volume depletion, hypotension, extensive biochemical abnormality with large anion gap acidosis/obtunded state/psychosis/hypokalemia 2.4/systolics low 90s. Patient received crystalloids boluses. Head CT suggestive of subdural hygroma for which neurosurgery was consulted by ER. No emergent intervention was indicated. Negative urine drug screen/alcohol level. Salicylates pending. Lactic acid over 9. COVID-19 test pending. White count 11.2 bilirubin 1.8. Patient remained altered and encephalopathic occasionally moving her arms but not to abl e to provide any history. Most of the history was obtained from . In light of above hospitalist service was consulted for admission At the time of my evaluation patient is gravely encephalopathic. GCS 3, unable to provide answers to any question or review of systems. She is tachycardic/ Dunn is draining concentrated urine. Multiple bruises on the body secondary to falls. Restless and intermittently agitated pulling on lines and tubes. 06/10-patient clinically improving. map barely at goal. Not requiring vasopressors however remains entirely encephalopathic with GCS 2. White count 12.4, hemoglobin 10.2. Cultures negative so far. Lactic acid downtrending to 2.7 this morning. From 7.1, anion gap improved to 22. Blood sugars improved to 122. Phosphorus 0.7 on replacement. Potassium 2.7 on replacement. Pyuria on urine. Nursing staff expressed concern about alcohol withdrawal and currently on Ativan, urine and blood cultures pending. On empiric antibiotic coverage. Low procalcitonin. 06/11 Nurse is unable to get the patient to take in orally this morning, which is a improvement since admission. Off vasopressors. Unknown alcohol intake at home. Nurse also discussed history with the who states that patient has a history of falling. She also has a history of confusion and agitation - sounds like she has undiagnosed dementia. 06/12 Restless overnight. She is a one-to-one this morning. Vital signs stable. 1 bottle of the blood cultures was positive for gram-positive cocci yesterday and so vancomycin was continued. Placing electrolytes as needed. Patient awake and verbalizes her desires but does not answer questions. Unable to gather review of systems given advanced dementia and significant hearing impairment. Constitutional Vitals: Vital Signs Temp Pulse Resp BP Pulse Ox 97.5 F 99 H 18 103/65 97 06/12/20 04:09 06/12/20 06:05 06/12/20 06:05 06/12/20 06:05 06/12/20 06:05 Period Temp Pulse Resp BP Sys/Malone Pulse Ox Last 24 Hr 94 F-97.8 F 15-109 14-22 95-117/55-81 94-98 Intake and Output 06/11/20 06/12/20 06/12/20 21:59 05:59 13:59 Intake Total 2040 90 Output Total 700 250 Balance 1340 -160 Weight 66.905 kg Intake & Output: Intake & Output 06/11/20 06/12/20 06/12/20 21:59 05:59 13:59 Intake Total 2040 90 Output Total 700 250 Balance 1340 -160 Weight 66.905 kg Intake: IV 1770 Sodium Chloride 0.9% 1,000 ml @ 1000 60 mls/hr IV .[id number] [facility] Rx#: [id number] Potassium Chloride 40 Meq In 520 Dextrose 5% in Water 500 ml @ 130 mls/hr IV ONCE ONE Rx#: [id number] Vancomycin 1,000 mg In Sodium 250 Chloride 0.9% 250 ml @ 250 mls/ hr IV Q12H [facility] Rx#:[id number] Oral 270 90 Output: Urine Catheter Amount 700 250 Other: Meal Lunch 1 cup watermelon, 1/2 cup Magic Cup Percent of Meal Consumed 0% 100% Feeding Ability Total Assistance Urine Appearance Clear Dunn Clear Clear Urine Color Bright Yellow Dunn Bright Yellow Bright Yellow Urine Odor Normal Stool Size Smear Stool Color Yellow Stool Consistency Loose Exam: General: Alert, Awake, No acute Distress Eyes/N/T: EOMI, Head/Neck: neck supple, CV: RRR, No murmurs, Pulm: Clear b/l, no wheezing/rhonchi/rales Abd: soft, nontender, +BS x4 Ext: no clubbing/cyanosis/edema Neuro: Alert, confusion-dementia, no focal deficits, moves all extremities, Skin: warm/dry OBJ DATA Labs CBC & Chem 7: 06/12/20 05:55 06/12/20 05:55 Labs: Abnormal Lab Results 06/12/20 06/12/20 06/11/20 05:55 05:55 05:53 WBC RBC 3.00 L Hgb 8.9 L Hct 27.6 L MCHC RDW 15.0 H Plt Count 138 L Neut % (Auto) Lymph % (Auto) Lymph # (Auto) 1.48 L Absolute Neutrophils D-Dimer VBG Lactic Acid Potassium 2.6 L* Chloride Carbon Dioxide 20 L Anion Gap BUN 6 L Glucose 110 H Calcium 7.5 L Phosphorus 1.2 L Magnesium 1.5 L Ferritin Total Bilirubin Direct Bilirubin 0.4 H Lactate Dehydrogenase 445 H C-Reactive Protein 4.10 H Total Protein 5.0 L Albumin 2.6 L Triglycerides 255 H Procalcitonin Urine Protein Urine Glucose (UA) Urine Ketones Urine Nitrate Urine Bilirubin Urine Urobilinogen Ur Leukocyte Esterase Urine RBC Urine WBC Urine Bacteria Hyaline Casts Urine Mucus Ethyl Alcohol 06/11/20 06/11/20 06/11/20 05:53 05:53 05:53 WBC RBC 3.09 L Hgb 9.2 L Hct 27.1 L MCHC RDW 14.7 H Plt Count Neut % (Auto) Lymph % (Auto) Lymph # (Auto) Absolute Neutrophils D-Dimer 1.24 H VBG Lactic Acid Potassium Chloride Carbon Dioxide Anion Gap BUN Glucose Calcium Phosphorus Magnesium Ferritin Total Bilirubin Direct Bilirubin Lactate Dehydrogenase C-Reactive Protein Total Protein Albumin Triglycerides Procalcitonin 0.21 H Urine Protein Urine Glucose (UA) Urine Ketones Urine Nitrate Urine Bilirubin Urine Urobilinogen Ur Leukocyte Esterase Urine RBC Urine WBC Urine Bacteria Hyaline Casts Urine Mucus Ethyl Alcohol 06/10/20 06/10/20 06/10/20 04:35 04:35 04:35 WBC 12.4 H RBC 3.43 L Hgb 10.2 L Hct 33.1 L MCHC 30.8 L RDW 15.1 H Plt Count Neut % (Auto) 83.4 H Lymph % (Auto) 13.0 L Lymph # (Auto) Absolute Neutrophils 10.36 H D-Dimer 1.36 H VBG Lactic Acid Potassium 2.7 L* Chloride Carbon Dioxide 17 L Anion Gap 22.0 H BUN Glucose 122 H Calcium 7.5 L Phosphorus 0.7 L Magnesium Ferritin 955.9 H Total Bilirubin 1.1 H Direct Bilirubin 0.5 H Lactate Dehydrogenase 389 H C-Reactive Protein 7.00 H Total Protein 5.5 L Albumin 3.1 L Triglycerides 282 H Procalcitonin Urine Protein Urine Glucose (UA) Urine Ketones Urine Nitrate Urine Bilirubin Urine Urobilinogen Ur Leukocyte Esterase Urine RBC Urine WBC Urine Bacteria Hyaline Casts Urine Mucus Ethyl Alcohol 06/10/20 06/10/20 06/09/20 04:35 04:35 18:08 WBC RBC Hgb Hct MCHC RDW Plt Count Neut % (Auto) Lymph % (Auto) Lymph # (Auto) Absolute Neutrophils D-Dimer VBG Lactic Acid 2.7 H 7.1 H* Potassium Chloride Carbon Dioxide Anion Gap BUN Glucose Calcium Phosphorus Magnesium Ferritin Total Bilirubin Direct Bilirubin Lactate Dehydrogenase C-Reactive Protein Total Protein Albumin Triglycerides Procalcitonin 0.34 H Urine Protein Urine Glucose (UA) Urine Ketones Urine Nitrate Urine Bilirubin Urine Urobilinogen Ur Leukocyte Esterase Urine RBC Urine WBC Urine Bacteria Hyaline Casts Urine Mucus Ethyl Alcohol 06/09/20 06/09/20 06/09/20 14:50 07:01 07:01 WBC RBC Hgb Hct MCHC RDW Plt Count Neut % (Auto) Lymph % (Auto) Lymph # (Auto) Absolute Neutrophils D-Dimer VBG Lactic Acid Potassium 2.4 L* Chloride 88 L Carbon Dioxide 17 L Anion Gap 28.0 H BUN 33 H Glucose 291 H Calcium Phosphorus Magnesium Ferritin Total Bilirubin 1.8 H Direct Bilirubin Lactate Dehydrogenase C-Reactive Protein Total Protein Albumin Triglycerides Procalcitonin Urine Protein 100 A Urine Glucose (UA) 50 A Urine Ketones 20 A Urine Nitrate Pos A Urine Bilirubin 2.0 A Urine Urobilinogen 4.0 A Ur Leukocyte Esterase 75 A Urine RBC 27 H Urine WBC 41 H Urine Bacteria Few A Hyaline Casts 9 H Urine Mucus Many A Ethyl Alcohol 0.010 H 06/09/20 07:01 WBC 11.2 H RBC Hgb Hct MCHC RDW Plt Count Neut % (Auto) 81.6 H Lymph % (Auto) 13.1 L Lymph # (Auto) 1.47 L Absolute Neutrophils 9.16 H D-Dimer VBG Lactic Acid Potassium Chloride Carbon Dioxide Anion Gap BUN Glucose Calcium Phosphorus Magnesium Ferritin Total Bilirubin Direct Bilirubin Lactate Dehydrogenase C-Reactive Protein Total Protein Albumin Triglycerides Procalcitonin Urine Protein Urine Glucose (UA) Urine Ketones Urine Nitrate Urine Bilirubin Urine Urobilinogen Ur Leukocyte Esterase Urine RBC Urine WBC Urine Bacteria Hyaline Casts Urine Mucus Ethyl Alcohol Meds: Medications Acetaminophen (Tylenol) 650 mg PO Q4-6HP PRN; Protocol PRN Reason: Per Pain Protocol/Fever > 101 Last Admin: 06/11/20 18:51 Dose: 650 mg Documented by: Albuterol/Ipratropium (Duoneb) 3 ml NEB QIDP PRN PRN Reason: Shortness Of Breath Atorvastatin Calcium (Lipitor) 20 mg PO HS [facility] Last Admin: 06/11/20 20:25 Dose: 20 mg Documented by: Bisacodyl (Dulcolax) 10 mg [place] Q2-3DAYS PRN PRN Reason: Constipation Cefepime HCl (Maxipime) 2 gm IV Q8H [facility]; Protocol Last Admin: 06/12/20 05:22 Dose: 2 gm Documented by: Chlordiazepoxide HCl (Librium) 25 mg PO Q4HP PRN PRN Reason: Alcohol Withdrawal Last Admin: 06/11/20 18:51 Dose: 25 mg Documented by: Clonazepam (Klonopin) 0.5 mg PO BID [facility] Last Admin: 06/11/20 20:25 Dose: 0.5 mg Documented by: Clopidogrel Bisulfate (Plavix) 75 mg PO QDAY [facility] Last Admin: 06/11/20 08:20 Dose: 75 mg Documented by: Cyanocobalamin (Vitamin B-12) 1,000 mcg PO BID [facility] Stop: 06/14/20 09:01 Last Admin: 06/11/20 20:25 Dose: 1,000 mcg Documented by: Dextrose (Dextrose 50%) 0 ml IV UD PRN PRN Reason: Hypoglycemia Diagnostic Test (Pha) (Accu-Chek) 1 each FS ACHS [facility] Last Admin: 06/11/20 20:29 Dose: 1 each Documented by: Docusate Sodium (Colace) 100 mg PO BID [facility] Last Admin: 06/11/20 20:25 Dose: 100 mg Documented by: Duloxetine HCl (Cymbalta) 40 mg PO DAILY [facility] Last Admin: 06/11/20 09:11 Dose: 40 mg Documented by: Enoxaparin Sodium (Lovenox) 40 mg SQ DAILY [facility] Last Admin: 06/11/20 08:21 Dose: 40 mg Documented by: Glucose (Insta-Glucose) 15 gm PO PRN PRN PRN Reason: Hypoglycemia Guaifenesin/Codeine Phosphate (Robitussin Ac) 10 ml PO Q4HP PRN PRN Reason: Cough Hydralazine HCl (Apresoline) 10 mg IV Q4-6HP PRN PRN Reason: Hypertension Potassium Chloride 40 meq/ (Dextrose) 520 mls @ 130 mls/hr IV UD PRN PRN Reason: K+ = or < 3.5 Last Infusion: 06/10/20 18:48 Dose: Infused Documented by: Acetaminophen (Ofirmev) 650 mg in 65 mls @ 130 mls/hr IV Q6HP PRN; Protocol PRN Reason: Per Pain Protocol/Fever > 101 Last Infusion: 06/10/20 19:30 Dose: Infused Documented by: Magnesium Sulfate (Magnesium Sulfate) 2 gm in 50 mls @ 50 mls/hr IV UD PRN PRN Reason: MG = or < 1.7 Norepinephrine Bitartrate 8 mg (/ Sodium Chloride) 250 mls @ 18.75 mls/hr IV Q12HP PRN; Protocol PRN Reason: Hypotension Potassium Chloride 20 meq/ (Sodium Chloride) 1,010 mls @ 50 mls/hr IV .[id number] [facility] Last Admin: 06/11/20 14:21 Dose: 50 mls/hr Documented by: Vancomycin HCl 1,000 mg/ (Sodium Chloride) 250 mls @ 250 mls/hr IV Q12H [facility] Last Infusion: 06/11/20 21:45 Dose: Infused Documented by: Insulin Human Lispro (Humalog) 0 unit SQ ACHS [facility]; Protocol Last Admin: 06/11/20 20:29 Dose: Not Given Documented by: Iron Carb/Multivit/Cass/Folic Acid (Multivitamin W/Minerals) 1 tab PO DAILY [facility] Last Admin: 06/11/20 08:20 Dose: 1 tab Documented by: Lorazepam (Ativan) 0 mg IV Q4HP PRN; Protocol PRN Reason: Alcohol Withdrawal Last Admin: 06/11/20 21:10 Dose: 2 mg Documented by: Melatonin (Melatonin 3mg Tablet) [address] [facility] Last Admin: 06/11/20 20:25 Dose: 3 mg Documented by: Metoprolol Tartrate (Lopressor) 5 mg IV Q5M PRN PRN Reason: Heart Rate > 140 bpm Nortriptyline HCl (Pamelor) 25 mg PO QHS [facility] Last Admin: 06/11/20 20:25 Dose: 25 mg Documented by: Olanzapine (Zyprexa) 5 mg PO HSP PRN PRN Reason: Agitation Ondansetron HCl (Zofran Odt) 4 mg SL Q4-6HP PRN; Protocol PRN Reason: Nausea And Vomiting Ondansetron HCl (Zofran) 4 mg IV Q4-6HP PRN; Protocol PRN Reason: Nausea And Vomiting (Budesonide- Formoterol [ Symbicort] 80 Mcg/4. 5 Mcg Inhaler 2 dose INH BIDP PRN PRN Reason: Shortness Of Breath Polyethylene Glycol (Miralax) 17 gm PO DAILYP PRN PRN Reason: Constipation Potassium Chloride (Klor-Con) 40 meq PO DAILYP PRN PRN Reason: K+ < 3.5 Senna/Docusate Sodium (Senna Plus Tablet) [address] [facility] Last Admin: 06/11/20 20:27 Dose: 1 tab Documented by: Sodium Chloride (Saline Flush) 10 ml IV Q8 [facility] Last Admin: 06/12/20 05:21 Dose: 10 ml Documented by: Sodium Chloride (Saline Flush) 10 ml IV Q8 [facility] Last Admin: 06/12/20 05:21 Dose: Not Given Documented by: Thiamine HCl (Vitamin B1) 100 mg PO DAILY [facility] Last Admin: 06/11/20 08:20 Dose: 100 mg Documented by: Topiramate (Topamax) 100 mg PO BID [facility] Last Admin: 06/11/20 20:25 Dose: 100 mg Documented by: Tramadol HCl (Ultram) 50 mg PO Q6HP PRN; Protocol PRN Reason: Pain Last Admin: 06/12/20 00:49 Dose: 50 mg Documented by: Vancomycin HCl (Vancomycin Per Pharmacy) 1 order IV [facility] [place]; Protocol A/P Narrative A/P Narrative: A: *Septic shock: resolved -Vasopressors on hold. Improving lactate down from 7>2.7. -Leukocytosis resolved. *Complicated UTI(GNB + Pseudomonas): *?Bacteremia (GPC 1/4 bottles) vs contaminant: *Anion gap metabolic acidosis: likely secondary to lactic acidosis. Clinically improving *Acute encephalopathy superimposed on underlying Dementia: 2/2 above -appears to be essentially baseline per family *Dementia likely vascular, sundowning: near baseline *h/o CVA per CT brain with encephalomalacia and b/l hygromas: *hypokalemia/phosphorus/mag: *Alcohol dependence w/withdrawal: *Volume depletion: responded well to crystalloids. *Elevated bilirubin: 2/2 sepsis endorgan dysfunction. improved *DM type II: *COPD continue bronchodilators *Anxiety disorder: *Neuropathy: continue nortriptyline Plan: -IVF's decrease as increased oral intake -Cefepime/vanco; pending BC and repeat BC -Alcohol withdrawal protocol -Replace electrolytes prn -basal prandial insulin/CC diet -continue clonazepam/duloxetine/trazodone -cont home statin/Plavix -Nutrition support -pt/ot -ppx: Lovenox Full code Time Spent With Patient Time: Total time spent is greater than 50% in coordination of care (as documented) at patient's floor/unit and/or counseling patient:
[2020-06-12] MEDS: INSULIN LISPRO 1 UNIT/0.01 ML UNIT SQ SCH ×4 (07:37→20:10)
[2020-06-12] MEDS: clonazePAM 0.5 MG TABLET PO SCH ×2 (08:14→20:16)
[2020-06-12] MEDS: CLOPIDOGREL 75 MG TABLET PO SCH (08:14)
[2020-06-12] MEDS: THIAMINE 100 MG TABLET PO SCH (08:15)
[2020-06-12] MEDS: chlordiazePOXIDE 25 MG CAPSULE PO PRN ×2 (08:15→14:51)
[2020-06-12] MEDS: MULTIVIT,THER IRON,CA,FA & MIN 1 TABLET PO SCH (08:16)
[2020-06-12] MEDS: VANCOMYCIN 1,000 MG in 0.9 % SODIUM CHLORIDE 250 ML IV SCH ×2 (08:17→20:14)
[2020-06-12] MEDS: ENOXAPARIN 40 MG/0.4 ML SYRINGE SQ SCH (08:17)
[2020-06-12] MEDS: CYANOCOBALAMIN (VITAMIN B-12) 500 MCG TABLET PO SCH ×4 (08:19→20:16)
[2020-06-12] MEDS: DOCUSATE SODIUM 100 MG CAPSULE PO SCH ×4 (08:20→20:19)
[2020-06-12] MEDS: DULoxetine 20 MG CAPSULE PO SCH (08:48)
[2020-06-12] MEDS: TOPIRAMATE 100 MG TABLET PO SCH ×2 (08:52→20:17)
[2020-06-12] MEDS ORDERED: MAGNESIUM SULFATE 2 GM/50 ML BAG IV PRN (08:53)
[2020-06-12] MEDS ORDERED: DEXTROSE 31 GM ORAL.SUSP PO PRN (08:53)
[2020-06-12] MEDS ORDERED: LORazepam 2 MG/ML VIAL IV PRN (08:53)
[2020-06-12] MEDS ORDERED: POTASSIUM CHLORIDE 20 MEQ PACKET PO PRN (08:53)
[2020-06-12] MEDS ORDERED: NOREPINEPHRINE BITARTRATE 8 MG in 0.9 % SODIUM CHLORIDE 242 ML IV PRN (08:53)
[2020-06-12] MEDS ORDERED: hydrALAZINE 20 MG/ML VIAL IV PRN (08:53)
[2020-06-12] MEDS ORDERED: METOPROLOL TARTRATE 5 MG/5 ML VIAL IV PRN (08:53)
[2020-06-12] MEDS ORDERED: ONDANSETRON 4 MG/2 ML VIAL IV PRN (08:53)
[2020-06-12] MEDS ORDERED: VANCOMYCIN PER PHARMACY IV SCH (08:53)
[2020-06-12] MEDS ORDERED: DEXTROSE 50% 50 ML VIAL IV PRN (08:53)
[2020-06-12] MEDS ORDERED: POTASSIUM CHLORIDE 40 MEQ in DEXTROSE 5% IN WATER 500 ML IV PRN (08:53)
[2020-06-12] MEDS ORDERED: ONDANSETRON 4 MG ODT TABLET SL PRN (08:53)
[2020-06-12] MEDS ORDERED: POLYETHYLENE GLYCOL 3350 17 GM PACKET PO PRN (08:53)
[2020-06-12] MEDS ORDERED: guaiFENesin/CODEINE 10 ML UDC PO PRN (08:53)
[2020-06-12] MEDS ORDERED: BISACODYL 10 MG SUPP.RECT PR PRN (08:53)
[2020-06-12] MEDS ORDERED: BUDESONIDE FORMOTEROL INH PRN (08:53)
[2020-06-12] MEDS ORDERED: IPRATROPIUM/ALBUTEROL 3 ML AMPUL.NEB NEB PRN (08:53)
[2020-06-12] MEDS ORDERED: ACETAMINOPHEN 650 MG/65 ML BOTTLE IV PRN (08:53)
[2020-06-12] MEDS ORDERED: CLOPIDOGREL 75 MG TABLET PO SCH (09:00)
[2020-06-12] MEDS ORDERED: clonazePAM 0.5 MG TABLET PO SCH (09:00)
[2020-06-12] MEDS ORDERED: ENOXAPARIN 40 MG/0.4 ML SYRINGE SQ SCH (09:00)
[2020-06-12] MEDS ORDERED: MULTIVIT,THER IRON,CA,FA & MIN 1 TABLET PO SCH (09:00)
[2020-06-12] MEDS ORDERED: DULoxetine 20 MG CAPSULE PO SCH (09:00)
[2020-06-12] MEDS ORDERED: FOLIC ACID 1 MG TABLET PO SCH ×2 (09:00)
[2020-06-12] MEDS ORDERED: THIAMINE 100 MG TABLET PO SCH (09:00)
[2020-06-12] MEDS ORDERED: TOPIRAMATE 100 MG TABLET PO SCH (09:00)
[2020-06-12] MEDS ORDERED: PHOSPHORUS 250 MG TABLET PO SCH ×2 (09:00)
[2020-06-12] MEDS: 0.9 % SODIUM CHLORIDE 250 ML IV SCH ×2 (10:08→23:03)
[2020-06-12] MEDS: PHOSPHORUS 250 MG TABLET PO SCH ×2 (12:10→16:19)
[2020-06-12] MEDS: ACETAMINOPHEN 325 MG TABLET PO PRN (12:10)
[2020-06-12] MEDS: POTASSIUM CHLORIDE 20 MEQ in 0.45 % SODIUM CHLORIDE 1,000 ML IV SCH (14:53)
[2020-06-12] MEDS: ATORVASTATIN 20 MG TABLET PO SCH (20:16)
[2020-06-12] MEDS: NORTRIPTYLINE 25 MG CAPSULE PO SCH (20:18)
[2020-06-12] MEDS: MELATONIN 3 MG TABLET PO SCH (20:18)
[2020-06-12] MEDS: SENNOSIDES/DOCUSATE SODIUM 1 TAB TABLET PO SCH (20:19)
[2020-06-12] MEDS ORDERED: OLANZapine 5 MG TABLET PO PRN (21:00)
[2020-06-13] MEDS: chlordiazePOXIDE 25 MG CAPSULE PO PRN ×2 (02:50→09:36)
[2020-06-13] MEDS: CEFEPIME 2 GM VIAL IV SCH ×3 (05:22→22:27)
[2020-06-13] MEDS: 0.9 % SODIUM CHLORIDE 10 ML SYRINGE IV SCH ×6 (05:24→22:27)
[2020-06-13 06:39] LABS: Basophils # (Auto) 0.02 K/mcL (0.00-0.20); Basophils % (Auto) 0.3 % (0.0-2.0); Eosinophils # (Auto) 0.15 K/mcL (0.00-0.70); Eosinophils % (Auto) 2.6 % (0.0-7.0); Hematocrit 26.7 % (36.0-48.0); Hemoglobin 8.3 g/dL (12.0-15.0); Lymphocytes # (Auto) 1.36 K/mcL (1.50-4.80); Lymphocytes % (Auto) 23.6 % (15.0-49.0); Mean Cell Volume 93.7 fL (80.0-100.0); Mean Corpuscular HGB Conc 31.1 g/dL (31.0-36.0); Mean Platelet Volume 9.8 fL (7.4-10.4); Monocytes # (Auto) 0.44 K/mcL (0.10-0.90); Monocytes % (Auto) 7.6 % (1.0-12.0); Neutrophils % (Auto) 65.9 % (38.0-78.0); Platelet Count 126 K/mcL (140-440); RBC 2.85 M/mcL (4.00-5.20); Red Cell Distribution Width 15.1 % (11.5-14.5); WBC 5.8 K/mcL (4.5-11.0)
--- NOTE | 2020-06-13 07:34 | Internal Med Progress Note ---
SUBJECTIVE Subjective Patient information: Note initiated : 06/13/20 at 7:31 am Service Date, if different from initiated Date: [] Patient: Shayna Brice 69 y/o F admitted on 06/09/20 for weakness. Chief Complaint: [] Interval history: Ms. Brice is a 69 year old F with a history of DM type II/anxiety disorder/CAD/HLD who presented to the ER with worsening weakness, confusion and multiple falls over the last few days. Symptoms progressed to the point in the last 24 hours patient has not made any sense concerning family was brought into the ER. Initial work-up was consistent with severe volume depletion, hypotension, extensive biochemical abnormality with large anion gap acidosis/obtunded state/psychosis/hypokalemia 2.4/systolics low 90s. Patient received crystalloids boluses. Head CT suggestive of subdural hygroma for which neurosurgery was consulted by ER. No emergent intervention was indicated. Negative urine drug screen/alcohol level. Salicylates pending. Lactic acid over 9. COVID-19 test pending. White count 11.2 bilirubin 1.8. Patient remained altered and encephalopathic occasionally moving her arms but not to abl e to provide any history. Most of the history was obtained from . In light of above hospitalist service was consulted for admission At the time of my evaluation patient is gravely encephalopathic. GCS 3, unable to provide answers to any question or review of systems. She is tachycardic/ Dunn is draining concentrated urine. Multiple bruises on the body secondary to falls. Restless and intermittently agitated pulling on lines and tubes. 06/10-patient clinically improving. map barely at goal. Not requiring vasopressors however remains entirely encephalopathic with GCS 2. White count 12.4, hemoglobin 10.2. Cultures negative so far. Lactic acid downtrending to 2.7 this morning. From 7.1, anion gap improved to 22. Blood sugars improved to 122. Phosphorus 0.7 on replacement. Potassium 2.7 on replacement. Pyuria on urine. Nursing staff expressed concern about alcohol withdrawal and currently on Ativan, urine and blood cultures pending. On empiric antibiotic coverage. Low procalcitonin. 06/11 Nurse is unable to get the patient to take in orally this morning, which is a improvement since admission. Off vasopressors. Unknown alcohol intake at home. Nurse also discussed history with the who states that patient has a history of falling. She also has a history of confusion and agitation - sounds like she has undiagnosed dementia. 06/12 Restless overnight. She is a one-to-one this morning. Vital signs stable. 1 bottle of the blood cultures was positive for gram-positive cocci yesterday and so vancomycin was continued. Placing electrolytes as needed. 06/13 Patient had a better night sleep last night. No other issues. Patient awake and verbalizes her desires but does not answer questions. Unable to gather review of systems given advanced dementia and significant hearing impairment. Constitutional Vitals: Vital Signs Temp Pulse Resp BP Pulse Ox 97.5 F 104 H 20 107/66 97 06/13/20 03:38 06/13/20 03:38 06/13/20 03:38 06/13/20 03:38 06/13/20 03:38 Period Temp Pulse Resp BP Sys/Malone Pulse Ox Last 24 Hr 96.8 F-97.9 F 94-104 10-23 74-126/50-109 95-98 Intake and Output 06/12/20 06/13/20 06/13/20 21:59 05:59 13:59 Intake Total 1260 120 Output Total 100 325 Balance 1160 -205 Weight 68.311 kg Intake & Output: Intake & Output 06/12/20 06/13/20 06/13/20 21:59 05:59 13:59 Intake Total 1260 120 Output Total 100 325 Balance 1160 -205 Weight 68.311 kg Intake: IV 1260 Potassium Chloride 20 Meq In 1010 Sodium Chloride 0.45% 1,000 ml @ 50 mls/hr IV .[id number] [facility] Rx# :[id number] Vancomycin 1,000 mg In Sodium 250 Chloride 0.9% 250 ml @ 250 mls/ hr IV Q12H [facility] Rx#:[id number] Oral 120 Output: Urine Catheter Amount 100 325 Other: Meal Chocolate Pudding Watermelon 1 cup, ice cream Percent of Meal Consumed 100% 100% Feeding Ability Total Assistance Total Assistance Urine Appearance Clear Clear Dunn Clear Urine Color Dark Yellow Dark Yellow Dunn Dark Yellow Urine Odor Normal Stool Size Smear Small Stool Color Brown Brown Stool Consistency Liquid Loose # of times incontinent of 1 1 Bowels Exam: General: Alert, Awake, No acute Distress Eyes/N/T: EOMI, Head/Neck: neck supple, CV: RRR, No murmurs, Pulm: Clear b/l, no wheezing/rhonchi/rales Abd: soft, nontender, +BS x4 Ext: no clubbing/cyanosis, b/l LE 1+ edema Neuro: Alert, confusion-dementia, no focal deficits, moves all extremities, Skin: warm/dry OBJ DATA Labs CBC & Chem 7: 06/13/20 05:28 06/13/20 05:28 Labs: Abnormal Lab Results 06/13/20 06/12/20 06/12/20 05:28 05:55 05:55 RBC 2.85 L Hgb 8.3 L Hct 26.7 L RDW 15.1 H Plt Count 126 L Lymph # (Auto) 1.36 L D-Dimer Potassium 3.1 L Carbon Dioxide 21 L Anion Gap BUN 7 L Creatinine 0.5 L Glucose 140 H Calcium 7.3 L Phosphorus 1.4 L Magnesium Ferritin 884.0 H Total Bilirubin Direct Bilirubin 0.4 H Lactate Dehydrogenase 385 H C-Reactive Protein Total Protein 4.8 L Albumin 2.5 L Triglycerides 230 H Folate Procalcitonin 06/12/20 06/12/20 06/12/20 05:55 05:55 05:55 RBC 3.00 L Hgb 8.9 L Hct 27.6 L RDW 15.0 H Plt Count 138 L Lymph # (Auto) 1.48 L D-Dimer Potassium Carbon Dioxide Anion Gap BUN Creatinine Glucose Calcium Phosphorus Magnesium Ferritin Total Bilirubin Direct Bilirubin Lactate Dehydrogenase C-Reactive Protein 4.10 H Total Protein Albumin Triglycerides Folate Procalcitonin 1.63 H 06/12/20 06/11/20 06/11/20 05:50 05:53 05:53 RBC Hgb Hct RDW Plt Count Lymph # (Auto) D-Dimer 1.24 H Potassium 2.6 L* Carbon Dioxide 20 L Anion Gap BUN 6 L Creatinine Glucose 110 H Calcium 7.5 L Phosphorus 1.2 L Magnesium 1.5 L Ferritin Total Bilirubin Direct Bilirubin 0.4 H Lactate Dehydrogenase 445 H C-Reactive Protein Total Protein 5.0 L Albumin 2.6 L Triglycerides 255 H Folate 2.1 L Procalcitonin 06/11/20 06/11/20 06/10/20 05:53 05:53 04:35 RBC 3.09 L Hgb 9.2 L Hct 27.1 L RDW 14.7 H Plt Count Lymph # (Auto) D-Dimer Potassium 2.7 L* Carbon Dioxide 17 L Anion Gap 22.0 H BUN Creatinine Glucose 122 H Calcium 7.5 L Phosphorus 0.7 L Magnesium Ferritin 955.9 H Total Bilirubin 1.1 H Direct Bilirubin 0.5 H Lactate Dehydrogenase 389 H C-Reactive Protein 7.00 H Total Protein 5.5 L Albumin 3.1 L Triglycerides 282 H Folate Procalcitonin 0.21 H 06/10/20 06/10/20 04:35 04:35 RBC Hgb Hct RDW Plt Count Lymph # (Auto) D-Dimer 1.36 H Potassium Carbon Dioxide Anion Gap BUN Creatinine Glucose Calcium Phosphorus Magnesium Ferritin Total Bilirubin Direct Bilirubin Lactate Dehydrogenase C-Reactive Protein Total Protein Albumin Triglycerides Folate Procalcitonin 0.34 H Meds: Medications Acetaminophen (Tylenol) 650 mg PO Q4-6HP PRN; Protocol PRN Reason: Per Pain Protocol/Fever > 101 Last Admin: 06/12/20 12:10 Dose: 650 mg Documented by: Albuterol/Ipratropium (Duoneb) 3 ml NEB QIDP PRN PRN Reason: Shortness Of Breath Atorvastatin Calcium (Lipitor) 20 mg PO [facility] Last Admin: 06/12/20 20:16 Dose: 20 mg Documented by: Bisacodyl (Dulcolax) 10 mg CO Q2-3DAYS PRN PRN Reason: Constipation Cefepime HCl (Maxipime) 2 gm IV Q8H [facility]; Protocol Last Admin: 06/13/20 05:22 Dose: 2 gm Documented by: Chlordiazepoxide HCl (Librium) 25 mg PO Q4HP PRN PRN Reason: Alcohol Withdrawal Last Admin: 06/13/20 02:50 Dose: 25 mg Documented by: Clonazepam (Klonopin) 0.5 mg PO BID [facility] Last Admin: 06/12/20 20:16 Dose: 0.5 mg Documented by: Clopidogrel Bisulfate (Plavix) 75 mg PO QDAY [facility] Cyanocobalamin (Vitamin B-12) 1,000 mcg PO BID [facility] Stop: 06/14/20 09:01 Last Admin: 06/12/20 20:16 Dose: 1,000 mcg Documented by: Dextrose (Dextrose 50%) 0 ml IV UD PRN PRN Reason: Hypoglycemia Diagnostic Test (Pha) (Accu-Chek) 1 each FS ACHS [facility] Last Admin: 06/12/20 20:10 Dose: 1 each Documented by: Docusate Sodium (Colace) 100 mg PO BID [facility] Last Admin: 06/12/20 20:19 Dose: Not Given Documented by: Duloxetine HCl (Cymbalta) 40 mg PO DAILY [facility] Enoxaparin Sodium (Lovenox) 40 mg SQ DAILY [facility] Folic Acid (Folic Acid) 1 mg PO DAILY [facility] Glucose (Insta-Glucose) 15 gm PO PRN PRN PRN Reason: Hypoglycemia Guaifenesin/Codeine Phosphate (Robitussin Ac) 10 ml PO Q4HP PRN PRN Reason: Cough Hydralazine HCl (Apresoline) 10 mg IV Q4-6HP PRN PRN Reason: Hypertension Acetaminophen (Ofirmev) 650 mg in 65 mls @ 130 mls/hr IV Q6HP PRN; Protocol PRN Reason: Per Pain Protocol/Fever > 101 Magnesium Sulfate (Magnesium Sulfate) 2 gm in 50 mls @ 50 mls/hr IV UD PRN PRN Reason: MG = or < 1.7 Potassium Chloride 20 meq/ (Sodium Chloride) 1,010 mls @ 50 mls/hr IV .[id number] [facility] Last Admin: 06/12/20 14:53 Dose: 50 mls/hr Documented by: Vancomycin HCl 1,000 mg/ (Sodium Chloride) 250 mls @ 250 mls/hr IV Q12H [facility] Last Infusion: 06/12/20 21:15 Dose: Infused Documented by: Norepinephrine Bitartrate 8 mg (/ Sodium Chloride) 250 mls @ 18.75 mls/hr IV Q12HP PRN; Protocol PRN Reason: Hypotension Potassium Chloride 40 meq/ (Dextrose) 520 mls @ 130 mls/hr IV UD PRN PRN Reason: K+ = or < 3.5 Sodium Chloride (Sodium Chloride 0.9%) 250 mls @ 20 mls/hr IV .[id number] [facility] Last Admin: 06/12/20 23:03 Dose: Not Given Documented by: Insulin Human Lispro (Humalog) 0 unit SQ ACHS [facility]; Protocol Last Admin: 06/12/20 20:10 Dose: Not Given Documented by: Iron Carb/Multivit/Levasy/Folic Acid (Multivitamin W/Minerals) 1 tab PO DAILY [facility] Lorazepam (Ativan) 0 mg IV Q4HP PRN; Protocol PRN Reason: Alcohol Withdrawal Last Admin: 06/12/20 16:16 Dose: 2 mg Documented by: Melatonin (Melatonin 3mg Tablet) 3 mg PO [facility] Last Admin: 06/12/20 20:18 Dose: 3 mg Documented by: Metoprolol Tartrate (Lopressor) 5 mg IV Q5M PRN PRN Reason: Heart Rate > 140 bpm Nortriptyline HCl (Pamelor) 25 mg PO QHS [facility] Last Admin: 06/12/20 20:18 Dose: 25 mg Documented by: Olanzapine (Zyprexa) 5 mg PO HSP PRN PRN Reason: Agitation Ondansetron HCl (Zofran Odt) 4 mg SL Q4-6HP PRN; Protocol PRN Reason: Nausea And Vomiting Ondansetron HCl (Zofran) 4 mg IV Q4-6HP PRN; Protocol PRN Reason: Nausea And Vomiting (Budesonide- Formoterol [ Symbicort] 80 Mcg/4. 5 Mcg Inhaler 2 dose INH BIDP PRN PRN Reason: Shortness Of Breath Polyethylene Glycol (Miralax) 17 gm PO DAILYP PRN PRN Reason: Constipation Potassium Chloride (Klor-Con) 40 meq PO DAILYP PRN PRN Reason: K+ < 3.5 Senna/Docusate Sodium (Senna Plus Tablet) 1 tab PO [facility] Last Admin: 06/12/20 20:19 Dose: Not Given Documented by: Sodium Chloride (Saline Flush) 10 ml IV Q8 [facility] Last Admin: 06/13/20 05:24 Dose: Not Given Documented by: Sodium Chloride (Saline Flush) 10 ml IV Q8 [facility] Last Admin: 06/13/20 05:25 Dose: Not Given Documented by: Thiamine HCl (Vitamin B1) 100 mg PO DAILY [facility] Topiramate (Topamax) 100 mg PO BID [facility] Last Admin: 06/12/20 20:17 Dose: 100 mg Documented by: Tramadol HCl (Ultram) 50 mg PO Q6HP PRN; Protocol PRN Reason: Pain Last Admin: 06/12/20 23:35 Dose: 50 mg Documented by: Vancomycin HCl (Vancomycin Per Pharmacy) 1 order IV [facility] [place] Protocol A/P Narrative A/P Narrative: A: *Septic shock: resolved -Vasopressors stopped. Improving lactate. Leukocytosis resolved. *Complicated UTI(GNB + Pseudomonas): *?Bacteremia (GPC 1/4 bottles) vs contaminant: *Anion gap metabolic acidosis: likely secondary to lactic acidosis. Clinically improving *Acute encephalopathy superimposed on underlying Dementia: 2/2 above -appears to be essentially baseline per family *Dementia likely vascular, sundowning: near baseline *h/o CVA per CT brain with encephalomalacia and b/l hygromas: *hypokalemia/phosphorus/mag: *?Alcohol dependence w/withdrawal: *Volume depletion: responded well to crystalloids. *Elevated bilirubin: 2/2 sepsis endorgan dysfunction. improved *DM type II: *COPD continue bronchodilators *Anxiety disorder: *Neuropathy: continue nortriptyline *Anemia: dilutional component Plan: -IVF's d/c, prn lasix -Cefepime/vanco; pending BC and repeat BC -f/u PCT -Replace electrolytes prn -basal prandial insulin/CC diet -continue clonazepam/duloxetine/trazodone -cont home statin/Plavix -Nutrition support -pt/ot -ppx: Lovenox Time Spent With Patient Time: Total time spent is greater than 50% in coordination of care (as documented) at patient's floor/unit and/or counseling patient:
[2020-06-13 07:48] LABS: ALT/SGPT 26 U/L (<40); AST/SGOT 27 U/L (<32); Albumin 2.4 gm/dL (3.2-5.2); Albumin/Globulin Ratio 1.1 (1.0-2.3); Alkaline Phosphatase 60 U/L (39-117); Bilirubin,Direct 0.3 mg/dL (<0.3); Bilirubin,Total 0.7 mg/dL (0.1-1.0); Blood Urea Nitrogen 7 mg/dL (8-23); Calcium 7.4 mg/dL (8.6-10.4); Carbon Dioxide 19 mmol/L (22-30); Chloride 108 mmol/L (96-108); Globulin 2.1 gm/dL (2.2-3.7); Glomerular Filtration Rate 91; Glucose 101 mg/dL (70-105); Lactate Dehydrogenase 375 U/L (135-225); Phosphorous 1.8 mg/dL (2.5-4.5); Triglycerides 229 mg/dL (<150); Uric Acid 3.1 mg/dL (2.5-8.0)
[2020-06-13] MEDS: INSULIN LISPRO 1 UNIT/0.01 ML UNIT SQ SCH ×4 (08:09→20:52)
[2020-06-13] MEDS ORDERED: POTASSIUM CHLORIDE 40 MEQ in DEXTROSE 5% IN WATER 500 ML IV ONE (08:17)
[2020-06-13] MEDS ORDERED: FUROSEMIDE 40 MG/4 ML VIAL IV ONE (08:35)
[2020-06-13] MEDS ORDERED: ALBUMIN HUMAN 12.5 GM/50 ML BAG IV ONE (08:35)
[2020-06-13] MEDS: VANCOMYCIN 1,000 MG in 0.9 % SODIUM CHLORIDE 250 ML IV SCH (09:00)
[2020-06-13] MEDS: ENOXAPARIN 40 MG/0.4 ML SYRINGE SQ SCH (09:11)
[2020-06-13] MEDS: clonazePAM 0.5 MG TABLET PO SCH ×2 (09:14→20:43)
[2020-06-13] MEDS: TOPIRAMATE 100 MG TABLET PO SCH ×2 (09:14→20:44)
[2020-06-13] MEDS: CYANOCOBALAMIN (VITAMIN B-12) 500 MCG TABLET PO SCH ×2 (09:14→20:43)
[2020-06-13] MEDS: THIAMINE 100 MG TABLET PO SCH (09:14)
[2020-06-13] MEDS: FOLIC ACID 1 MG TABLET PO SCH (09:15)
[2020-06-13] MEDS: CLOPIDOGREL 75 MG TABLET PO SCH (09:15)
[2020-06-13] MEDS: DOCUSATE SODIUM 100 MG CAPSULE PO SCH ×2 (09:16→20:44)
[2020-06-13] MEDS: MULTIVIT,THER IRON,CA,FA & MIN 1 TABLET PO SCH (09:16)
[2020-06-13] MEDS: DULoxetine 20 MG CAPSULE PO SCH (09:19)
[2020-06-13] MEDS: traMADol 50 MG TABLET PO PRN (09:36)
[2020-06-13] MEDS: POTASSIUM CHLORIDE 20 MEQ in 0.45 % SODIUM CHLORIDE 1,000 ML IV SCH (09:48)
[2020-06-13] MEDS: PHOSPHORUS 250 MG TABLET PO SCH ×4 (09:57→20:43)
[2020-06-13] MEDS: QUEtiapine 25 MG TABLET PO SCH (20:43)
[2020-06-13] MEDS: MELATONIN 3 MG TABLET PO SCH (20:44)
[2020-06-13] MEDS: SENNOSIDES/DOCUSATE SODIUM 1 TAB TABLET PO SCH (20:44)
[2020-06-13] MEDS: ATORVASTATIN 20 MG TABLET PO SCH (20:44)
[2020-06-13] MEDS: NORTRIPTYLINE 25 MG CAPSULE PO SCH (20:44)
[2020-06-14] MEDS: CEFEPIME 2 GM VIAL IV SCH ×3 (05:49→22:59)
[2020-06-14] MEDS: 0.9 % SODIUM CHLORIDE 10 ML SYRINGE IV SCH ×6 (06:00→23:00)
[2020-06-14 06:23] LABS: Basophils # (Auto) 0.02 K/mcL (0.00-0.20); Basophils % (Auto) 0.4 % (0.0-2.0); Eosinophils # (Auto) 0.07 K/mcL (0.00-0.70); Eosinophils % (Auto) 1.5 % (0.0-7.0); Hematocrit 28.3 % (36.0-48.0); Hemoglobin 8.6 g/dL (12.0-15.0); Lymphocytes # (Auto) 1.37 K/mcL (1.50-4.80); Lymphocytes % (Auto) 29.5 % (15.0-49.0); Mean Cell Volume 96.9 fL (80.0-100.0); Mean Corpuscular HGB Conc 30.4 g/dL (31.0-36.0); Mean Platelet Volume 10.1 fL (7.4-10.4); Monocytes # (Auto) 0.41 K/mcL (0.10-0.90); Monocytes % (Auto) 8.8 % (1.0-12.0); Neutrophils % (Auto) 59.8 % (38.0-78.0); Platelet Count 145 K/mcL (140-440); RBC 2.92 M/mcL (4.00-5.20); Red Cell Distribution Width 15.5 % (11.5-14.5); WBC 4.6 K/mcL (4.5-11.0)
[2020-06-14] MEDS: DOCUSATE SODIUM 100 MG CAPSULE PO SCH ×3 (07:01→21:57)
[2020-06-14 07:23] LABS: Vancomycin,Random 14.2 ug/mL
[2020-06-14 07:40] LABS: ALT/SGPT 24 U/L (<40); AST/SGOT 27 U/L (<32); Albumin 2.6 gm/dL (3.2-5.2); Albumin/Globulin Ratio 1.1 (1.0-2.3); Alkaline Phosphatase 69 U/L (39-117); Bilirubin,Direct < 0.2 mg/dL (<0.3); Bilirubin,Total 0.6 mg/dL (0.1-1.0); Blood Urea Nitrogen 10 mg/dL (8-23); Carbon Dioxide 21 mmol/L (22-30); Chloride 107 mmol/L (96-108); Globulin 2.3 gm/dL (2.2-3.7); Glomerular Filtration Rate 87; Glucose 128 mg/dL (70-105); Lactate Dehydrogenase 363 U/L (135-225); Phosphorous 2.7 mg/dL (2.5-4.5); Triglycerides 240 mg/dL (<150); Uric Acid 3.6 mg/dL (2.5-8.0)
--- NOTE | 2020-06-14 08:00 | Internal Med Progress Note ---
SUBJECTIVE Subjective Patient information: Note initiated : 06/14/20 at 7:58 am Service Date, if different from initiated Date: [] Patient: Shayna Brice 69 y/o F admitted on 06/09/20 for weakness. Chief Complaint: [] Interval history: Ms. Brice is a 69 year old F with a history of DM type II/anxiety disorder/CAD/HLD who presented to the ER with worsening weakness, confusion and multiple falls over the last few days. Symptoms progressed to the point in the last 24 hours patient has not made any sense concerning family was brought into the ER. Initial work-up was consistent with severe volume depletion, hypotension, extensive biochemical abnormality with large anion gap acidosis/obtunded state/psychosis/hypokalemia 2.4/systolics low 90s. Patient received crystalloids boluses. Head CT suggestive of subdural hygroma for which neurosurgery was consulted by ER. No emergent intervention was indicated. Negative urine drug screen/alcohol level. Salicylates pending. Lactic acid over 9. COVID-19 test pending. White count 11.2 bilirubin 1.8. Patient remained altered and encephalopathic occasionally moving her arms but not to abl e to provide any history. Most of the history was obtained from . In light of above hospitalist service was consulted for admission At the time of my evaluation patient is gravely encephalopathic. GCS 3, unable to provide answers to any question or review of systems. She is tachycardic/ Dunn is draining concentrated urine. Multiple bruises on the body secondary to falls. Restless and intermittently agitated pulling on lines and tubes. 06/10-patient clinically improving. map barely at goal. Not requiring vasopressors however remains entirely encephalopathic with GCS 2. White count 12.4, hemoglobin 10.2. Cultures negative so far. Lactic acid downtrending to 2.7 this morning. From 7.1, anion gap improved to 22. Blood sugars improved to 122. Phosphorus 0.7 on replacement. Potassium 2.7 on replacement. Pyuria on urine. Nursing staff expressed concern about alcohol withdrawal and currently on Ativan, urine and blood cultures pending. On empiric antibiotic coverage. Low procalcitonin. 06/11 Nurse is unable to get the patient to take in orally this morning, which is a improvement since admission. Off vasopressors. Unknown alcohol intake at home. Nurse also discussed history with the who states that patient has a history of falling. She also has a history of confusion and agitation - sounds like she has undiagnosed dementia. 06/12 Restless overnight. She is a one-to-one this morning. Vital signs stable. 1 bottle of the blood cultures was positive for gram-positive cocci yesterday and so vancomycin was continued. Placing electrolytes as needed. 06/13 Patient had a better night sleep last night. No other issues. Patient awake and verbalizes her desires but does not answer questions. Unable to gather review of systems given advanced dementia and significant hearing impairment. 06/14 Patient slept better last night. No changes overnight. Unable to gather review of systems given advanced dementia and significant hearing impairment. Constitutional Vitals: Vital Signs Temp Pulse Resp BP Pulse Ox 97.4 F 106 H 18 90/65 95 06/14/20 03:41 06/14/20 03:41 06/14/20 03:41 06/14/20 03:41 06/14/20 03:41 Period Temp Pulse Resp BP Sys/Malone Pulse Ox Last 24 Hr 96.9 F-97.4 F 106-112 - 90-119/64-72 93-98 Intake and Output 06/13/20 06/14/20 06/14/20 21:59 05:59 13:59 Intake Total 455 60 Output Total 1525 175 Balance -1070 -115 Weight 65.998 kg Intake & Output: Intake & Output 06/13/20 06/14/20 06/14/20 21:59 05:59 13:59 Intake Total 455 60 Output Total 1525 175 Balance -1070 -115 Weight 65.998 kg Intake: Nourishment/Supplement quantity 235 (ml) Oral 220 60 Output: Urine Catheter Amount 1525 175 Other: Meal Dinner Watermelon Percent of Meal Consumed 25% Feeding Ability Total Assistance Total Assistance Nourishment/Supplement name Magic Cup Dessert Urine Appearance Clear Clear Dunn Clear Urine Color Bright Yellow Dark Yellow Dunn Bright Yellow Urine Odor Strong Strong Stool Size Large Stool Color Brown Stool Consistency Liquid # Bowel Movements 1 # of times incontinent of 1 Bowels Exam: General: Alert, Awake, No acute Distress Eyes/N/T: EOMI, Head/Neck: neck supple, CV: RRR, 6 SM, Pulm: Clear b/l, no wheezing/rhonchi/rales Abd: soft, nontender, +BS x4 Ext: no clubbing/cyanosis, b/l LE mild edema improved Neuro: Alert, confusion-dementia, no focal deficits, moves all extremities, Skin: warm/dry OBJ DATA Labs CBC & Chem 7: 06/14/20 05:28 06/14/20 05:28 Labs: Abnormal Lab Results 06/14/20 06/14/20 06/14/20 05:28 05:28 05:28 RBC 2.92 L Hgb 8.6 L Hct 28.3 L MCHC 30.4 L RDW 15.5 H Plt Count Lymph # (Auto) 1.37 L D-Dimer Potassium 2.8 L* Carbon Dioxide 21 L BUN Creatinine Glucose 128 H Calcium 8.0 L Phosphorus Magnesium Ferritin Direct Bilirubin Lactate Dehydrogenase 363 H C-Reactive Protein Total Protein 4.9 L Albumin 2.6 L Globulin Triglycerides 240 H Folate Procalcitonin 0.99 H Vancomycin Trough 06/13/20 06/13/20 06/13/20 08:02 05:28 05:28 RBC Hgb Hct MCHC RDW Plt Count Lymph # (Auto) D-Dimer Potassium 2.8 L* Carbon Dioxide 19 L BUN 7 L Creatinine Glucose Calcium 7.4 L Phosphorus 1.8 L Magnesium Ferritin Direct Bilirubin 0.3 H Lactate Dehydrogenase 375 H C-Reactive Protein Total Protein 4.5 L Albumin 2.4 L Globulin 2.1 L Triglycerides 229 H Folate Procalcitonin 1.69 H Vancomycin Trough 21.4 H* 06/13/20 06/12/20 06/12/20 05:28 05:55 05:55 RBC 2.85 L Hgb 8.3 L Hct 26.7 L MCHC RDW 15.1 H Plt Count 126 L Lymph # (Auto) 1.36 L D-Dimer Potassium 3.1 L Carbon Dioxide 21 L BUN 7 L Creatinine 0.5 L Glucose 140 H Calcium 7.3 L Phosphorus 1.4 L Magnesium Ferritin 884.0 H Direct Bilirubin 0.4 H Lactate Dehydrogenase 385 H C-Reactive Protein Total Protein 4.8 L Albumin 2.5 L Globulin Triglycerides 230 H Folate Procalcitonin Vancomycin Trough 06/12/20 06/12/20 06/12/20 05:55 05:55 05:55 RBC 3.00 L Hgb 8.9 L Hct 27.6 L MCHC RDW 15.0 H Plt Count 138 L Lymph # (Auto) 1.48 L D-Dimer Potassium Carbon Dioxide BUN Creatinine Glucose Calcium Phosphorus Magnesium Ferritin Direct Bilirubin Lactate Dehydrogenase C-Reactive Protein 4.10 H Total Protein Albumin Globulin Triglycerides Folate Procalcitonin 1.63 H Vancomycin Trough 06/12/20 06/11/20 06/11/20 05:50 05:53 05:53 RBC Hgb Hct MCHC RDW Plt Count Lymph # (Auto) D-Dimer 1.24 H Potassium 2.6 L* Carbon Dioxide 20 L BUN 6 L Creatinine Glucose 110 H Calcium 7.5 L Phosphorus 1.2 L Magnesium 1.5 L Ferritin Direct Bilirubin 0.4 H Lactate Dehydrogenase 445 H C-Reactive Protein Total Protein 5.0 L Albumin 2.6 L Globulin Triglycerides 255 H Folate 2.1 L Procalcitonin Vancomycin Trough Meds: Medications Acetaminophen (Tylenol) 650 mg PO Q4-6HP PRN; Protocol PRN Reason: Per Pain Protocol/Fever > 101 Last Admin: 06/12/20 12:10 Dose: 650 mg Documented by: Albuterol/Ipratropium (Duoneb) 3 ml NEB QIDP PRN PRN Reason: Shortness Of Breath Atorvastatin Calcium (Lipitor) 20 mg PO HS [facility] Last Admin: 06/13/20 20:44 Dose: 20 mg Documented by: Bisacodyl (Dulcolax) 10 mg FL Q2-3DAYS PRN PRN Reason: Constipation Cefepime HCl (Maxipime) 2 gm IV Q8H [facility]; Protocol Last Admin: 06/14/20 05:49 Dose: 2 gm Documented by: Clonazepam (Klonopin) 0.5 mg PO BID [facility] Last Admin: 06/13/20 20:43 Dose: 0.5 mg Documented by: Clopidogrel Bisulfate (Plavix) 75 mg PO QDAY [facility] Last Admin: 06/13/20 09:15 Dose: 75 mg Documented by: Cyanocobalamin (Vitamin B-12) 1,000 mcg PO BID [facility] Stop: 06/14/20 09:01 Last Admin: 06/13/20 20:43 Dose: 1,000 mcg Documented by: Dextrose (Dextrose 50%) 0 ml IV UD PRN PRN Reason: Hypoglycemia Diagnostic Test (Pha) (Accu-Chek) 1 each FS ACHS [facility] Last Admin: 06/13/20 20:51 Dose: 1 each Documented by: Docusate Sodium (Colace) 100 mg PO BID [facility] Last Admin: 06/14/20 07:01 Dose: Not Given Documented by: Duloxetine HCl (Cymbalta) 40 mg PO DAILY [facility] Last Admin: 06/13/20 09:19 Dose: 40 mg Documented by: Enoxaparin Sodium (Lovenox) 40 mg SQ DAILY [facility] Last Admin: 06/13/20 09:11 Dose: 40 mg Documented by: Folic Acid (Folic Acid) 1 mg PO DAILY [facility] Last Admin: 06/13/20 09:15 Dose: 1 mg Documented by: Glucose (Insta-Glucose) 15 gm PO PRN PRN PRN Reason: Hypoglycemia Guaifenesin/Codeine Phosphate (Robitussin Ac) 10 ml PO Q4HP PRN PRN Reason: Cough Hydralazine HCl (Apresoline) 10 mg IV Q4-6HP PRN PRN Reason: Hypertension Acetaminophen (Ofirmev) 650 mg in 65 mls @ 130 mls/hr IV Q6HP PRN; Protocol PRN Reason: Per Pain Protocol/Fever > 101 Magnesium Sulfate (Magnesium Sulfate) 2 gm in 50 mls @ 50 mls/hr IV UD PRN PRN Reason: MG = or < 1.7 Norepinephrine Bitartrate 8 mg (/ Sodium Chloride) 250 mls @ 18.75 mls/hr IV Q12HP PRN; Protocol PRN Reason: Hypotension Potassium Chloride 40 meq/ (Dextrose) 520 mls @ 130 mls/hr IV UD PRN PRN Reason: K+ = or < 3.5 Insulin Human Lispro (Humalog) 0 unit SQ [facility]; Protocol Last Admin: 06/13/20 20:52 Dose: Not Given Documented by: Iron Carb/Multivit/[place]/Folic Acid (Multivitamin W/Minerals) 1 tab PO DAILY [facility] Last Admin: 06/13/20 09:16 Dose: 1 tab Documented by: Melatonin (Melatonin 3mg Tablet) 3 mg PO [facility] Last Admin: 06/13/20 20:44 Dose: 3 mg Documented by: Metoprolol Tartrate (Lopressor) 5 mg IV Q5M PRN PRN Reason: Heart Rate > 140 bpm Nortriptyline HCl (Pamelor) 25 mg PO QHS [facility] Last Admin: 06/13/20 20:44 Dose: 25 mg Documented by: Olanzapine (Zyprexa) 5 mg PO HSP PRN PRN Reason: Agitation Ondansetron HCl (Zofran Odt) 4 mg SL Q4-6HP PRN; Protocol PRN Reason: Nausea And Vomiting Ondansetron HCl (Zofran) 4 mg IV Q4-6HP PRN; Protocol PRN Reason: Nausea And Vomiting (Budesonide- Formoterol [ Symbicort] 80 Mcg/4. 5 Mcg Inhaler 2 dose INH BIDP PRN PRN Reason: Shortness Of Breath Polyethylene Glycol (Miralax) 17 gm PO DAILYP PRN PRN Reason: Constipation Potassium Chloride (Klor-Con) 40 meq PO DAILYP PRN PRN Reason: K+ < 3.5 Quetiapine Fumarate (Seroquel) 50 mg PO [facility] Last Admin: 06/13/20 20:43 Dose: 50 mg Documented by: Senna/Docusate Sodium (Senna Plus Tablet) 1 tab PO [facility] Last Admin: 06/13/20 20:44 Dose: Not Given Documented by: Sodium Chloride (Saline Flush) 10 ml IV Q8 [facility] Last Admin: 06/14/20 06:00 Dose: 10 ml Documented by: Sodium Chloride (Saline Flush) 10 ml IV Q8 [facility] Last Admin: 06/14/20 07:01 Dose: 10 ml Documented by: Thiamine HCl (Vitamin B1) 100 mg PO DAILY [facility] Last Admin: 06/13/20 09:14 Dose: 100 mg Documented by: Topiramate (Topamax) 100 mg PO BID [facility] Last Admin: 06/13/20 20:44 Dose: 100 mg Documented by: Tramadol HCl (Ultram) 50 mg PO Q6HP PRN; Protocol PRN Reason: Pain Last Admin: 06/13/20 09:36 Dose: 50 mg Documented by: Vancomycin HCl (Vancomycin Per Pharmacy) 1 order IV [facility]; Protocol A/P Narrative A/P Narrative: A: *Septic shock: resolved -Vasopressors stopped. Improving lactate. Leukocytosis resolved. *Complicated UTI(GNB + Pseudomonas): *?Bacteremia (GPC 1/4 bottles) vs contaminant: *Anion gap metabolic acidosis: likely secondary to lactic acidosis. Clinically improving *Acute encephalopathy superimposed on underlying Dementia: 2/2 above -appears to be essentially baseline per family *Dementia likely vascular, sundowning: near baseline *h/o CVA per CT brain with encephalomalacia and b/l hygromas: *hypokalemia/phosphorus/mag: *Volume depletion: responded well to crystalloids. *Elevated bilirubin: 2/2 sepsis endorgan dysfunction. improved *DM type II: *COPD continue bronchodilators *Anxiety disorder: *Neuropathy: continue nortriptyline *Anemia: dilutional component, stable Plan: -Cefepime/vanco; pending UC/BC and repeat BC -Replace electrolytes prn -basal prandial insulin/CC diet -continue clonazepam/duloxetine/trazodone -cont home statin/Plavix -Nutrition support -pt/ot -CM for SNF placement -ppx: Lovenox Time Spent With Patient Time: Total time spent is greater than 50% in coordination of care (as documented) at patient's floor/unit and/or counseling patient:
[2020-06-14] MEDS ORDERED: POTASSIUM CHLORIDE 40 MEQ in DEXTROSE 5% IN WATER 500 ML IV ONE (08:01)
[2020-06-14] MEDS ORDERED: POTASSIUM CHLORIDE 20 MEQ TABLET PO ONE (08:01)
[2020-06-14] MEDS: INSULIN LISPRO 1 UNIT/0.01 ML UNIT SQ SCH ×4 (08:28→21:27)
[2020-06-14] MEDS: ENOXAPARIN 40 MG/0.4 ML SYRINGE SQ SCH (08:32)
[2020-06-14] MEDS: CLOPIDOGREL 75 MG TABLET PO SCH (08:32)
[2020-06-14] MEDS: DULoxetine 20 MG CAPSULE PO SCH (08:32)
[2020-06-14] MEDS: ACETAMINOPHEN 325 MG TABLET PO PRN (08:32)
[2020-06-14] MEDS: traMADol 50 MG TABLET PO PRN ×2 (08:35→21:36)
[2020-06-14] MEDS: MULTIVIT,THER IRON,CA,FA & MIN 1 TABLET PO SCH (08:36)
[2020-06-14] MEDS: CYANOCOBALAMIN (VITAMIN B-12) 500 MCG TABLET PO SCH (08:37)
[2020-06-14] MEDS: FOLIC ACID 1 MG TABLET PO SCH (08:37)
[2020-06-14] MEDS: THIAMINE 100 MG TABLET PO SCH (08:37)
[2020-06-14] MEDS: clonazePAM 0.5 MG TABLET PO SCH ×2 (08:37→21:42)
[2020-06-14] MEDS: TOPIRAMATE 100 MG TABLET PO SCH ×2 (08:40→21:45)
[2020-06-14] MEDS ORDERED: VANCOMYCIN 1,000 MG in 0.9 % SODIUM CHLORIDE 250 ML IV SCH (10:00)
--- NOTE | 2020-06-14 10:08 | Discharge Summary ---
Discharge Provider Provider Patient information: Note initiated : 06/14/20 at 10:07 am Service Date, if different from initiated Date: [] Patient: Shayna Brice 69 y/o F admitted on 06/09/20 for weakness. Chief Complaint: [] Date of admission: 06/09/20 12:26 Discharge date: 06/15/20 Primary care physician: Yari Fritz PA-C Consults: 06/09/20 11:07 Consult to Physician [CONS] Stat Comment: Consulting Provider: Iftikhar Lamas Reason For Exam: Physician to Consult Discharge Meds Discharge Medications Home Medications topiramate 100 mg tablet 100 mg PO BID 06/01/19 [History Confirmed 06/09/20 Last Taken 07/15/19] budesonide-formoterol HFA 80 mcg-4.5 mcg/actuation aerosol inhaler 2 puff INHALATION BID PRN 06/03/19 [History Confirmed 06/09/20 Last Taken Unknown] ipratropium 20 mcg-albuterol 100 mcg/actuation mist for inhalation 1 puff INHALATION QID PRN g 06/03/19 [History Confirmed 06/09/20 Last Taken Unknown] blood sugar diagnostic #100 each 11/04/19 [Rx Confirmed 06/09/20 Last Taken Unknown] blood-glucose meter #1 each 11/04/19 [Rx Confirmed 06/09/20 Last Taken Unknown] lancets #102 each 11/04/19 [Rx Confirmed 06/09/20 Last Taken Unknown] clopidogrel 75 mg tablet 75 mg PO QDAY #90 tab 12/27/19 [Rx Confirmed 06/09/20 Last Taken Unknown] fenofibrate 160 mg tablet 160 mg PO DAILY #90 tab 12/27/19 [Rx Confirmed 06/09/20 Last Taken Unknown] metformin 1,000 mg PO BID 01/22/20 [History Confirmed 06/09/20 Last Taken Unknown] semaglutide 0.5 mg SUB-Q QWEEK #1.5 ml 02/07/20 [Rx Confirmed 06/09/20 Last Taken Unknown] clonazepam 0.5 mg tablet 0.5 mg PO BID #60 tab 06/05/20 [Rx Confirmed 06/09/20 Last Taken Unknown] duloxetine 20 mg capsule,delayed release 40 mg PO QDAY #180 cap 06/05/20 [Rx Confirmed 06/09/20 Last Taken Unknown] nortriptyline 25 mg capsule 25 mg PO QHS #90 cap 06/05/20 [Rx Confirmed 06/09/20 Last Taken Unknown] rosuvastatin 20 mg tablet 10 mg PO QHS #90 tab 06/05/20 [Rx Confirmed 06/09/20 Last Taken Unknown] trazodone 300 mg PO HS 06/09/20 [History Confirmed 06/09/20 Last Taken Unknown] ciprofloxacin HCl 500 mg PO BID #2 tab 06/14/20 [Rx Last Taken Unknown] COURSE Hospital Course Hospital course: Ms. Brice is a 69 year old F with a history of DM type II/anxiety disorder/CAD/HLD who presented to the ER with worsening weakness, confusion and multiple falls over the last few days. Symptoms progressed to the point in the last 24 hours patient has not made any sense concerning family was brought into the ER. Initial work-up was consistent with severe volume depletion, hypotensio n, extensive biochemical abnormality with large anion gap acidosis/obtunded state/psychosis/hypokalemia 2.4/systolics low 90s. Patient received crystalloids boluses. Head CT suggestive of subdural hygroma for which neurosurgery was consulted by ER. No emergent intervention was indicated. Negative urine drug screen/alcohol level. Salicylates pending. Lactic acid over 9. COVID-19 test pending. White count 11.2 bilirubin 1.8. Patient remained altered and encephalopathic occasionally moving her arms but not to able to provide any history. Most of the history was obtained from . In light of above hospitalist service was consulted for admission At the time of my evaluation patient is gravely encephalopathic. GCS 3, unable to provide answers to any question or review of systems. She is tachycardic/Dunn is draining concentrated urine. Multiple bruises on the body secondary to falls. Restless and intermittently agitated pulling on lines and tubes. 06/10-patient clinically improving. map barely at goal. Not requiring vasopressors however remains entirely encephalopathic with GCS 2. White count 12.4, hemoglobin 10.2. Cultures negative so far. Lactic acid downtrending to 2.7 this morning. From 7.1, anion gap improved to 22. Blood sugars improved to 122. Phosphorus 0.7 on replacement. Potassium 2.7 on replacement. Pyuria on urine. Nursing staff expressed concern about alcohol withdrawal and currently on Ativan, urine and blood cultures pending. On empiric antibiotic coverage. Low procalcitonin. 06/11 Nurse is unable to get the patient to take in orally this morning, which is a improvement since admission. Off vasopressors. Unknown alcohol intake at home. Nurse also discussed history with the who states that patient has a history of falling. She also has a history of confusion and agitation - sounds like she has undiagnosed dementia. 06/12 Restless overnight. She is a one-to-one this morning. Vital signs stable. 1 bottle of the blood cultures was positive for gram-positive cocci yesterday and so vancomycin was continued. Placing electrolytes as needed. 06/13 Patient had a better night sleep last night. No other issues. Patient awake and verbalizes her desires but does not answer questions. Unable to gather review of systems given advanced dementia and significant hearing impairment. 06/14 Patient slept better last night. No changes overnight. Unable to gather review of systems given advanced dementia and significant hearing impairment. 06/15 doing well. Stable for discharge. *Given age and comorbidities patient high risk for readmission A: *Septic shock: resolved -Vasopressors stopped. Improving lactate. Leukocytosis resolved. *Complicated UTI(Pseudomonas): *Anion gap metabolic acidosis: likely secondary to lactic acidosis. Clinically improving *Acute encephalopathy superimposed on underlying Dementia: 2/2 above -appears to be essentially baseline per family *Dementia likely vascular, : near baseline *h/o CVA per CT brain with encephalomalacia and b/l hygromas: *hypokalemia/phosphorus/mag: *Volume depletion: responded well to crystalloids. *Elevated bilirubin: 2/2 sepsis endorgan dysfunction. improved *DM type II: *COPD continue bronchodilators *Anxiety disorder: *Neuropathy: continue nortriptyline *Anemia: dilutional component, stable Discharge diagnosis: Septic shock complicated UTI metabolic acidosis encephalopathy dementia Secondary discharge diagnosis: History of stroke electrolyte abnormalities volume depletion diabetes COPD anxiety neuropathy anemia Time Spent with Patient Time attestation: Total time spent providing and/or coordinating discharge services: Time spent: Greater than 30 minutes EXAM Constitutional Vitals: Temp Pulse Resp BP Pulse Ox 97.5 F 106 H 30 H 92/76 94 06/14/20 08:00 06/14/20 03:41 06/14/20 08:00 06/14/20 08:00 06/14/20 08:00 Discharge Data Data Completed and Pending Labs on day of discharge: Labs from last 24 hours 06/14/20 06/14/20 06/14/20 05:29 05:28 05:28 WBC RBC Hgb Hct MCV MCH MCHC RDW Plt Count MPV Neut % (Auto) Lymph % (Auto) [place] % (Auto) Eos % (Auto) Baso % (Auto) Lymph # (Auto) [place] # (Auto) Eos # (Auto) Baso # (Auto) Absolute Neutrophils Sodium 141 Potassium 2.8 L* Chloride 107 Carbon Dioxide 21 L Anion Gap 13.0 BUN 10 Creatinine 0.7 GFR Calculation 87 Glucose 128 H Uric Acid 3.6 Calcium 8.0 L Phosphorus 2.7 Magnesium 1.8 Total Bilirubin 0.6 Direct Bilirubin < 0.2 GGT 32 AST 27 ALT 24 Alkaline Phosphatase 69 Lactate Dehydrogenase 363 H Total Protein 4.9 L Albumin 2.6 L Globulin 2.3 Albumin/Globulin Ratio 1.1 Triglycerides 240 H Procalcitonin 0.99 H Random Vancomycin 14.2 Vancomycin Dose Pending Vanco Last Dose Time Pending 06/14/20 05:28 WBC 4.6 RBC 2.92 L Hgb 8.6 L Hct 28.3 L MCV 96.9 MCH 29.5 MCHC 30.4 L RDW 15.5 H Plt Count 145 MPV 10.1 Neut % (Auto) 59.8 Lymph % (Auto) 29.5 [place]ard % (Auto) 8.8 Eos % (Auto) 1.5 Baso % (Auto) 0.4 Lymph # (Auto) 1.37 L [place] # (Auto) 0.41 Eos # (Auto) 0.07 Baso # (Auto) 0.02 Absolute Neutrophils 2.77 Sodium Potassium Chloride Carbon Dioxide Anion Gap BUN Creatinine GFR Calculation Glucose Uric Acid Calcium Phosphorus Magnesium Total Bilirubin Direct Bilirubin GGT AST ALT Alkaline Phosphatase Lactate Dehydrogenase Total Protein Albumin Globulin Albumin/Globulin Ratio Triglycerides Procalcitonin Random Vancomycin Vancomycin Dose Vanco Last Dose Time Preliminary micro results at discharge 06/12/20 05:55 Blood Culture - Preliminary Blood 06/12/20 05:50 Blood Culture - Preliminary Blood 06/09/20 08:32 Blood Culture - Preliminary Blood Gram positive cocci Discharge Plan Patient/Caregiver Discharge Instructions Activity: increase activity as tolerated Diet: Consistent Carbohydrate Prescriptions: New ciprofloxacin HCl 500 mg tablet 500 mg PO BID Qty: 2 RF: 0 Continued fenofibrate 160 mg tablet 160 mg tablet 160 mg PO DAILY Qty: 90 RF: 0 clopidogrel 75 mg tablet 75 mg PO QDAY Qty: 90 RF: 0 rosuvastatin 20 mg tablet 10 mg PO QHS Qty: 90 RF: 0 nortriptyline 25 mg capsule 25 mg PO QHS Qty: 90 RF: 0 duloxetine 20 mg capsule,delayed release(DR/EC) 40 mg PO QDAY Qty: 180 RF: 0 clonazepam 0.5 mg tablet 0.5 mg PO BID Qty: 60 RF: 2 Symbicort 80-4.5 mcg/actuation HFA aerosol inhaler 2 puff INHALATION BID PRN (Reason: Shortness Of Breath) RF: 0 Combivent Respimat 20-100 mcg/actuation mist 1 puff INHALATION QID PRN (Reason: Shortness Of Breath) RF: 0 topiramate 100 mg tablet 100 mg PO BID RF: 0 (DME) blood-glucose meter Misc See Rx Instructions .ROUTE .MEDSUPPLY Qty: 1 RF: 0 (DME) blood sugar diagnostic [Blood Glucose Test] Strip See Rx Instructions .ROUTE .MEDSUPPLY Qty: 100 RF: 3 (DME) lancets [Accu-Chek Softclix Lancets] Misc See Rx Instructions .ROUTE .MEDSUPPLY Qty: 102 RF: 3 Ozempic 0.25 mg or 0.5 mg(2 mg/1.5 mL) pen injector 0.5 mg SUB-Q QWEEK Qty: 1.5 RF: 3 metformin 500 mg tablet 1,000 mg PO BID RF: 0 trazodone 150 mg tablet 300 mg PO HS RF: 0 Follow Up Plan Follow up with: Yari Fritz PA-C [Primary Care Provider] - Patient Disposition: Xfer SNF Prognosis: Undetermined Rehab Potential: Fair I certify that the patient requires SNF services: Yes Overall status at discharge: patient is progressing back to baseline Discharge Orders: Discharge Order (Routine); Ordered 06/15/20 Ordered By: Keyon Rubio
[2020-06-14] MEDS: NORTRIPTYLINE 25 MG CAPSULE PO SCH (21:37)
[2020-06-14] MEDS: QUEtiapine 25 MG TABLET PO SCH (21:39)
[2020-06-14] MEDS: MELATONIN 3 MG TABLET PO SCH (21:40)
[2020-06-14] MEDS: ATORVASTATIN 20 MG TABLET PO SCH (21:51)
[2020-06-15] MEDS: CEFEPIME 2 GM VIAL IV SCH (06:02)
[2020-06-15] MEDS: 0.9 % SODIUM CHLORIDE 10 ML SYRINGE IV SCH ×2 (06:03)
[2020-06-15] MEDS: INSULIN LISPRO 1 UNIT/0.01 ML UNIT SQ SCH ×2 (06:57→12:39)
--- NOTE | 2020-06-15 07:18 | Internal Med Progress Note ---
SUBJECTIVE Subjective Patient information: Note initiated : 06/15/20 at 7:17 am Service Date, if different from initiated Date: [] Patient: Shayna Brice 69 y/o F admitted on 06/09/20 for weakness. Chief Complaint: [] Interval history: Ms. Brice is a 69 year old F with a history of DM type II/anxiety disorder/CAD/HLD who presented to the ER with worsening weakness, confusion and multiple falls over the last few days. Symptoms progressed to the point in the last 24 hours patient has not made any sense concerning family was brought into the ER. Initial work-up was consistent with severe volume depletion, hypotension, extensive biochemical abnormality with large anion gap acidosis/obtunded state/psychosis/hypokalemia 2.4/systolics low 90s. Patient received crystalloids boluses. Head CT suggestive of subdural hygroma for which neurosurgery was consulted by ER. No emergent intervention was indicated. Negative urine drug screen/alcohol level. Salicylates pending. Lactic acid over 9. COVID-19 test pending. White count 11.2 bilirubin 1.8. Patient remained altered and encephalopathic occasionally moving her arms but not to abl e to provide any history. Most of the history was obtained from . In light of above hospitalist service was consulted for admission At the time of my evaluation patient is gravely encephalopathic. GCS 3, unable to provide answers to any question or review of systems. She is tachycardic/ Dunn is draining concentrated urine. Multiple bruises on the body secondary to falls. Restless and intermittently agitated pulling on lines and tubes. 06/10-patient clinically improving. map barely at goal. Not requiring vasopressors however remains entirely encephalopathic with GCS 2. White count 12.4, hemoglobin 10.2. Cultures negative so far. Lactic acid downtrending to 2.7 this morning. From 7.1, anion gap improved to 22. Blood sugars improved to 122. Phosphorus 0.7 on replacement. Potassium 2.7 on replacement. Pyuria on urine. Nursing staff expressed concern about alcohol withdrawal and currently on Ativan, urine and blood cultures pending. On empiric antibiotic coverage. Low procalcitonin. 06/11 Nurse is unable to get the patient to take in orally this morning, which is a improvement since admission. Off vasopressors. Unknown alcohol intake at home. Nurse also discussed history with the who states that patient has a history of falling. She also has a history of confusion and agitation - sounds like she has undiagnosed dementia. 06/12 Restless overnight. She is a one-to-one this morning. Vital signs stable. 1 bottle of the blood cultures was positive for gram-positive cocci yesterday and so vancomycin was continued. Placing electrolytes as needed. 06/13 Patient had a better night sleep last night. No other issues. Patient awake and verbalizes her desires but does not answer questions. Unable to gather review of systems given advanced dementia and significant hearing impairment. 06/14 Patient slept better last night. No changes overnight. 06/15 Doing well. No overnight event or new complaints. Looks like stable. Awaiting placement Unable to gather review of systems given advanced dementia and significant hearing impairment. Constitutional Vitals: Vital Signs Temp Pulse Resp BP Pulse Ox 97.5 F 114 H 16 101/61 96 06/15/20 03:19 06/15/20 03:19 06/15/20 03:19 06/15/20 03:19 06/15/20 03:19 Period Temp Pulse Resp BP Sys/Malone Pulse Ox Last 24 Hr 97.1 F-97.7 F 110-114 12-30 91-102/45-76 94-100 Intake and Output 06/14/20 06/15/20 06/15/20 21:59 05:59 13:59 Intake Total 0 Output Total 300 Balance -300 Weight 65.363 kg Intake & Output: Intake & Output 06/14/20 06/15/20 06/15/20 21:59 05:59 13:59 Intake Total 0 Output Total 300 Balance -300 Weight 65.363 kg Intake: Oral 0 Output: Urine Catheter Amount 300 Other: Meal 1x pudding & 1x applesauce Percent of Meal Consumed 100% Feeding Ability Total Assistance Urine Appearance Clear Clear Dunn Clear Urine Color Dark Yellow Dark Teena Dunn Tea Colored Stool Size Large Stool Color Brown Stool Consistency Soft Liquid # Bowel Movements 1 Exam: General: Alert, Awake, No acute Distress Eyes/N/T: EOMI, Head/Neck: neck supple, CV: RRR, 1/6 SM, Pulm: Clear b/l, no wheezing/rhonchi/rales Abd: soft, nontender, +BS x4 Ext: no clubbing/cyanosis, b/l LE mild edema improved Neuro: Alert, confusion-dementia, no focal deficits, moves all extremities, Skin: warm/dry OBJ DATA Labs CBC & Chem 7: 06/14/20 05:28 06/15/20 05:39 Labs: Abnormal Lab Results 06/14/20 06/14/20 06/14/20 05:28 05:28 05:28 RBC 2.92 L Hgb 8.6 L Hct 28.3 L MCHC 30.4 L RDW 15.5 H Plt Count Lymph # (Auto) 1.37 L Potassium 2.8 L* Carbon Dioxide 21 L BUN Creatinine Glucose 128 H Calcium 8.0 L Phosphorus Ferritin Direct Bilirubin Lactate Dehydrogenase 363 H C-Reactive Protein Total Protein 4.9 L Albumin 2.6 L Globulin Triglycerides 240 H Folate Procalcitonin 0.99 H Vancomycin Trough 06/13/20 06/13/20 06/13/20 08:02 05:28 05:28 RBC Hgb Hct MCHC RDW Plt Count Lymph # (Auto) Potassium 2.8 L* Carbon Dioxide 19 L BUN 7 L Creatinine Glucose Calcium 7.4 L Phosphorus 1.8 L Ferritin Direct Bilirubin 0.3 H Lactate Dehydrogenase 375 H C-Reactive Protein Total Protein 4.5 L Albumin 2.4 L Globulin 2.1 L Triglycerides 229 H Folate Procalcitonin 1.69 H Vancomycin Trough 21.4 H* 06/13/20 06/12/20 06/12/20 05:28 05:55 05:55 RBC 2.85 L Hgb 8.3 L Hct 26.7 L MCHC RDW 15.1 H Plt Count 126 L Lymph # (Auto) 1.36 L Potassium 3.1 L Carbon Dioxide 21 L BUN 7 L Creatinine 0.5 L Glucose 140 H Calcium 7.3 L Phosphorus 1.4 L Ferritin 884.0 H Direct Bilirubin 0.4 H Lactate Dehydrogenase 385 H C-Reactive Protein Total Protein 4.8 L Albumin 2.5 L Globulin Triglycerides 230 H Folate Procalcitonin Vancomycin Trough 06/12/20 06/12/20 06/12/20 05:55 05:55 05:50 RBC Hgb Hct MCHC RDW Plt Count Lymph # (Auto) Potassium Carbon Dioxide BUN Creatinine Glucose Calcium Phosphorus Ferritin Direct Bilirubin Lactate Dehydrogenase C-Reactive Protein 4.10 H Total Protein Albumin Globulin Triglycerides Folate 2.1 L Procalcitonin 1.63 H Vancomycin Trough Meds: Medications Acetaminophen (Tylenol) 650 mg PO Q4-6HP PRN; Protocol PRN Reason: Per Pain Protocol/Fever > 101 Last Admin: 06/14/20 08:32 Dose: 650 mg Documented by: Albuterol/Ipratropium (Duoneb) 3 ml NEB QIDP PRN PRN Reason: Shortness Of Breath Atorvastatin Calcium (Lipitor) 20 mg PO HS [facility] Last Admin: 06/14/20 21:51 Dose: 20 mg Documented by: Bisacodyl (Dulcolax) 10 mg NC Q2-3DAYS PRN PRN Reason: Constipation Cefepime HCl (Maxipime) 2 gm IV Q8H [facility]; Protocol Last Admin: 06/15/20 06:02 Dose: 2 gm Documented by: Clonazepam (Klonopin) 0.5 mg PO BID [facility] Last Admin: 06/14/20 21:42 Dose: 0.5 mg Documented by: Clopidogrel Bisulfate (Plavix) 75 mg PO QDAY [facility] Last Admin: 06/14/20 08:32 Dose: 75 mg Documented by: Dextrose (Dextrose 50%) 0 ml IV UD PRN PRN Reason: Hypoglycemia Diagnostic Test (Pha) (Accu-Chek) 1 each FS ACHS [facility] Last Admin: 06/15/20 06:57 Dose: 1 each Documented by: Docusate Sodium (Colace) 100 mg PO BID [facility] Last Admin: 06/14/20 21:57 Dose: Not Given Documented by: Duloxetine HCl (Cymbalta) 40 mg PO DAILY [facility] Last Admin: 06/14/20 08:32 Dose: 40 mg Documented by: Enoxaparin Sodium (Lovenox) 40 mg SQ DAILY [facility] Last Admin: 06/14/20 08:32 Dose: 40 mg Documented by: Folic Acid (Folic Acid) 1 mg PO DAILY [facility] Last Admin: 06/14/20 08:37 Dose: 1 mg Documented by: Glucose (Insta-Glucose) 15 gm PO PRN PRN PRN Reason: Hypoglycemia Guaifenesin/Codeine Phosphate (Robitussin Ac) 10 ml PO Q4HP PRN PRN Reason: Cough Hydralazine HCl (Apresoline) 10 mg IV Q4-6HP PRN PRN Reason: Hypertension Acetaminophen (Ofirmev) 650 mg in 65 mls @ 130 mls/hr IV Q6HP PRN; Protocol PRN Reason: Per Pain Protocol/Fever > 101 Magnesium Sulfate (Magnesium Sulfate) 2 gm in 50 mls @ 50 mls/hr IV UD PRN PRN Reason: MG = or < 1.7 Norepinephrine Bitartrate 8 mg (/ Sodium Chloride) 250 mls @ 18.75 mls/hr IV Q12HP PRN; Protocol PRN Reason: Hypotension Potassium Chloride 40 meq/ (Dextrose) 520 mls @ 130 mls/hr IV UD PRN PRN Reason: K+ = or < 3.5 Insulin Human Lispro (Humalog) 0 unit SQ ACHS [facility]; Protocol Last Admin: 06/15/20 06:57 Dose: Not Given Documented by: Iron Carb/Multivit/[place]/Folic Acid (Multivitamin W/Minerals) 1 tab PO DAILY [facility] Last Admin: 06/14/20 08:36 Dose: 1 tab Documented by: Melatonin (Melatonin 3mg Tablet) 3 mg PO HS [facility] Last Admin: 06/14/20 21:40 Dose: 3 mg Documented by: Metoprolol Tartrate (Lopressor) 5 mg IV Q5M PRN PRN Reason: Heart Rate > 140 bpm Nortriptyline HCl (Pamelor) 25 mg PO QHS [facility] Last Admin: 06/14/20 21:37 Dose: 25 mg Documented by: Olanzapine (Zyprexa) 5 mg PO HSP PRN PRN Reason: Agitation Ondansetron HCl (Zofran Odt) 4 mg SL Q4-6HP PRN; Protocol PRN Reason: Nausea And Vomiting Ondansetron HCl (Zofran) 4 mg IV Q4-6HP PRN; Protocol PRN Reason: Nausea And Vomiting (Budesonide- Formoterol [ Symbicort] 80 Mcg/4. 5 Mcg Inhaler 2 dose INH BIDP PRN PRN Reason: Shortness Of Breath Polyethylene Glycol (Miralax) 17 gm PO DAILYP PRN PRN Reason: Constipation Potassium Chloride (Klor-Con) 40 meq PO DAILYP PRN PRN Reason: K+ < 3.5 Quetiapine Fumarate (Seroquel) 50 mg PO HS [facility] Last Admin: 06/14/20 21:39 Dose: 50 mg Documented by: Sodium Chloride (Saline Flush) 10 ml IV Q8 [facility] Last Admin: 06/15/20 06:03 Dose: 10 ml Documented by: Sodium Chloride (Saline Flush) 10 ml IV Q8 [facility] Last Admin: 06/15/20 06:03 Dose: Not Given Documented by: Thiamine HCl (Vitamin B1) 100 mg PO DAILY [facility] Last Admin: 06/14/20 08:37 Dose: 100 mg Documented by: Topiramate (Topamax) 100 mg PO BID [facility] Last Admin: 06/14/20 21:45 Dose: 100 mg Documented by: Tramadol HCl (Ultram) 50 mg PO Q6HP PRN; Protocol PRN Reason: Pain Last Admin: 06/14/20 21:36 Dose: 50 mg Documented by: A/P Narrative A/P Narrative: A: *Septic shock: resolved -Vasopressors stopped. Improving lactate. Leukocytosis resolved. *Complicated UTI(Pseudomonas): *Anion gap metabolic acidosis: likely secondary to lactic acidosis. Clinically improving *Acute encephalopathy superimposed on underlying Dementia: 2/2 above -appears to be essentially baseline per family *Dementia likely vascular, sundowning: near baseline *h/o CVA per CT brain with encephalomalacia and b/l hygromas: *hypokalemia/phosphorus/mag: *Volume depletion: responded well to crystalloids. *Elevated bilirubin: 2/2 sepsis endorgan dysfunction. improved *DM type II: *COPD continue bronchodilators *Anxiety disorder: *Neuropathy: continue nortriptyline *Anemia: dilutional component, stable Plan: -Cefepime to cipro -Replace electrolytes prn -basal prandial insulin/CC diet -continue clonazepam/duloxetine/trazodone -cont home statin/Plavix -Nutrition support -pt/ot -CM for SNF placement -ppx: Lovenox Time Spent With Patient Time: Total time spent is greater than 50% in coordination of care (as documented) at patient's floor/unit and/or counseling patient:
[2020-06-15 07:32] LABS: Blood Urea Nitrogen 13 mg/dL (8-23); Calcium 8.2 mg/dL (8.6-10.4); Carbon Dioxide 20 mmol/L (22-30); Chloride 110 mmol/L (96-108); Glomerular Filtration Rate 87; Glucose 97 mg/dL (70-105)
[2020-06-15] MEDS: ENOXAPARIN 40 MG/0.4 ML SYRINGE SQ SCH (09:10)
[2020-06-15] MEDS: TOPIRAMATE 100 MG TABLET PO SCH (09:10)
[2020-06-15] MEDS: traMADol 50 MG TABLET PO PRN (09:11)
[2020-06-15] MEDS: clonazePAM 0.5 MG TABLET PO SCH (09:16)
[2020-06-15] MEDS: CLOPIDOGREL 75 MG TABLET PO SCH (09:16)
[2020-06-15] MEDS: FOLIC ACID 1 MG TABLET PO SCH (09:19)
[2020-06-15] MEDS: MULTIVIT,THER IRON,CA,FA & MIN 1 TABLET PO SCH (09:20)
[2020-06-15] MEDS: THIAMINE 100 MG TABLET PO SCH (09:20)
[2020-06-15] MEDS: DOCUSATE SODIUM 100 MG CAPSULE PO SCH (12:35)
[2020-06-15] MEDS: DULoxetine 20 MG CAPSULE PO SCH (12:36)
[2020-06-16] MEDS ORDERED: SEMAGLUTIDE 0.5 MG SUB-Q SCH (09:00)
== END 2020-06-15 13:32 | DRG 871 ==
LOC: ED 06:35 → ICU 12:22 → MEDSUR 06-14 13:51
PROVIDERS: ADMIT Internal Medicine; ATTEND Internal Medicine